=== PATIENT | female | born 1985 | race Caucasian/White ===

== ENCOUNTER → 2018-01-14 14:29 | Outpatient (CLI) | payer OTHER, SELFPAY ==
--- NOTE | 2018-01-14 14:31 | US_ITS ---
US breast RT complete COMPARISON: None HISTORY: Soreness right breast for 2 weeks TECHNIQUE: Targeted ultrasound right breast FINDINGS: There is fairly homogeneous echogenicity in all 4 quadrants scan consistent with primarily fatty type breast parenchyma. There is no suspicious cystic or solid mass identified and there are no findings of architectural distortion. There are 2 small normal-appearing nodes in the axilla. IMPRESSION: Unremarkable ultrasound right breast
== END ==
PROVIDERS: Family Provider Emergency Medicine; PCP Internal Medicine Adolescent Medicine; Visit Provider Nurse Practitioner Obstetrics & Gynecology
DX: N60.11 Diffuse cystic mastopathy of right breast (principal)
CPT/HCPCS: 76641

== ENCOUNTER → 2018-02-06 15:09 | Outpatient (CLI) | payer OTHER, SELFPAY ==
[2018-02-06 16:09] LABS: HCG,Quantitative 0 mIU/mL
== END ==
PROVIDERS: Visit Provider Nurse Practitioner Obstetrics & Gynecology
DX: Z32.00 Encounter for pregnancy test, result unknown (principal)
CPT/HCPCS: 36415; 84702

== ENCOUNTER → 2018-07-30 15:22 | Outpatient (CLI) | payer BC, SELFPAY ==
[2018-07-30 19:04] LABS: HCG,Quantitative 0 mIU/mL
== END ==
PROVIDERS: Visit Provider Nurse Practitioner Obstetrics & Gynecology
DX: Z34.90 Encounter for supervision of normal pregnancy, unspecified, unspecified trimester (principal)
CPT/HCPCS: 36415; 84702

== ENCOUNTER → 2018-10-23 13:05 | Outpatient (CLI) | payer BC, SELFPAY ==
--- NOTE | 2018-10-23 13:09 | MR_ITS ---
MR head/brain wo/w con HISTORY: Headache with nausea and lightheadedness and sensitivity to light ITS.REASON: MIGRAINE WITHOUT AURA AND WITHOUT STATUS MIGRAINOSUS, NOT IN ORDERING PHYSICIAN: Kj Pack MD PATIENT AGE: 32 years Comparison: None TECHNIQUE: Standard multiplanar multiecho sequences are performed without and with gadolinium enhancement . FINDINGS: No midline shift, mass effect, intracranial hemorrhage, or hydrocephalus. No evidence of acute infarction. The cerebellopontine angles, cerebellum, and brainstem are unremarkable. There is normal solis-white matter differentiation with no abnormal white matter signal intensity apparent. The pituitary, optic chiasm, corpus callosum, and craniocervical junction have an unremarkable appearance. No enhancing lesions are evident. No large aneurysms are identified. No mastoid effusion or sinus air-fluid level. A 16 mm mucus retention cyst is present in the floor the right maxillary sinus. IMPRESSION: 1. No acute intracranial findings. Unremarkable MRI of the brain without and with contrast. 2. Right maxillary sinus mucus retention cyst
== END ==
PROVIDERS: PCP Internal Medicine Adolescent Medicine; Visit Provider Internal Medicine Adolescent Medicine
DX: G43.009 Migraine without aura, not intractable, without status migrainosus (principal)
CPT/HCPCS: 70553; A9576

== ENCOUNTER → 2018-10-25 16:57 | Outpatient (CLI) | payer BC, SELFPAY ==
--- NOTE | 2018-10-25 17:03 | XR_ITS ---
XR chest 2V HISTORY: ITS.REASON: RIB PAIN ON RIGHT SIDE, COUGH ORDERING PHYSICIAN: Kj Pack MD PATIENT AGE: 32 years COMPARISON: None FINDINGS: The cardiomediastinal silhouette and pulmonary vascularity are within normal limits. The lungs are clear without infiltrates, suspicious nodules, or pleural effusions. No acute bony abnormalities. IMPRESSION: Negative chest, no acute finding
--- NOTE | 2018-10-25 17:04 | XR_ITS ---
XR ribs RT 2V HISTORY: ITS.REASON: RIB PAIN ON RIGHT SIDE, COUGH ORDERING PHYSICIAN: Kj Pack MD PATIENT AGE: 32 years Comparison: None FINDINGS: A frontal view of the chest shows no acute finding. Multiple views of the Left ribs were obtained. No fracture or dislocation. No lytic or blastic change. IMPRESSION: Negative RIBS. If pain persists, consider follow-up exam in 7-[address] with 3-D reformats.
== END ==
PROVIDERS: PCP Internal Medicine Adolescent Medicine; Visit Provider Internal Medicine Adolescent Medicine
DX: R05 Cough (principal); R07.81 Pleurodynia
CPT/HCPCS: 71046; 71100

== ENCOUNTER → 2019-11-25 20:01 | Outpatient (CLI) | payer BC, SELFPAY ==
[2019-11-25 21:46] LABS: Coronavirus 19 IgG Antibody Negative (Negative); Coronavirus 19 IgM Antibody Negative (Negative)
== END ==
PROVIDERS: PCP Internal Medicine Adolescent Medicine; Visit Provider Internal Medicine Adolescent Medicine
DX: Z03.818 Encounter for observation for suspected exposure to other biological agents ruled out (principal); J02.9 Acute pharyngitis, unspecified
CPT/HCPCS: 36415; 86328

== ENCOUNTER → 2020-05-10 16:04 | Outpatient (CLI) | payer BC, SELFPAY | PROVIDERS: PCP Internal Medicine Adolescent Medicine; Visit Provider Nurse Practitioner Family | DX: Z03.818 Encounter for observation for suspected exposure to other biological agents ruled out (principal); R50.9 Fever, unspecified; J20.9 Acute bronchitis, unspecified | CPT/HCPCS: U0003 ==

== ENCOUNTER → 2020-07-30 14:51 | Outpatient (CLI) | payer BC, SELFPAY | PROVIDERS: PCP Internal Medicine Adolescent Medicine; Visit Provider Internal Medicine Adolescent Medicine | DX: R10.84 Generalized abdominal pain (principal); R30.0 Dysuria | CPT/HCPCS: U0003 ==

== ENCOUNTER 2021-02-16 00:16 | Day surgery (SDC) | payer BC, SELFPAY ==
[2021-02-16] VITALS (19 sets, daily range): BP systolic 90–134; BP diastolic 52–88; PULSE 65–98; RESP 12–20; TEMP 36.1–36.9; O2SAT 93–100; BMI 37.5
--- NOTE | 2021-02-16 00:43 | HMH.EDNVD ---
ED Disposition Clinical Impression: Ruptured ectopic Disposition: Admitted as Observation Condition on Discharge: Serious Instructions: DI for Acute Abdominal Pain Referrals: Kj Pack MD [Primary Care Provider] - - Critical Care Critical Care Time: No Attestation: On 02/16/21, the high probability of a clinically significant, sudden or life threatening deterioration of the following system(s) required my full and direct attention, intervention and personal management. The time I documented below is in addition to time spent performing reported procedures but includes the following listed in this critical care notation. Medical Decision Making - Medical Records Medical records reviewed: Yes: I reviewed the patient's medical records. - Tyler Inquiry Pt receiving controlled substance: No Vital Signs: 02/16/21 00:18 02/16/21 01:00 02/16/21 02:00 Temperature 98.5 F Temperature Source Oral Pulse Rate 70 97 H Pulse Rate [Left Radial] 98 H Respiratory Rate 20 18 Blood Pressure 115/66 134/75 Blood Pressure [Right Arm] 127/65 Blood Pressure Mean 80 Blood Pressure Mean [Right Arm] 85 Blood Pressure Source [Right Arm] Automatic Cuff Blood Pressure Position [Right Arm] Sitting 02 Sat by Pulse Oximetry 99 100 98 Oxygen Delivery Method Room Air Room Air 02/16/21 02:24 02/16/21 02:30 Temperature Temperature Source Pulse Rate 82 77 Pulse Rate [Left Radial] Respiratory Rate 20 19 Blood Pressure 99/59 L 107/65 L Blood Pressure [Right Arm] Blood Pressure Mean Blood Pressure Mean [Right Arm] Blood Pressure Source [Right Arm] Blood Pressure Position [Right Arm] 02 Sat by Pulse Oximetry 100 100 Oxygen Delivery Method Room Air - Lab Data Lab results reviewed: Yes: I reviewed the patient's lab results. Lab Results 02/16/21 00:30: WBC 17.4 H, RBC 4.78, Hgb 13.5, Hct 39.7, MCV 83.0, MCH 28.2, MCHC 34.0, RDW 14.7, Plt Count 281, MPV 9.4, Neut % (Auto) 61.4, Lymph % (Auto) 30.9, [place] % (Auto) 4.4, Eos % (Auto) 2.9, Baso % (Auto) 0.4, Neut # (Auto) 10.7 H, Lymph # (Auto) 5.4 H, [place] # (Auto) 0.8, Eos # (Auto) 0.5 H, Baso # (Auto) 0.1, Total Counted 100, Neutrophils % (Manual) 60, Lymphocytes % (Manual) 33, Monocytes % (Manual) 4, Eosinophils % (Manual) 3, Platelet Estimate Normal, RBC Morphology Normal, ESR 14 02/16/21 00:30: Sodium 138, Potassium 3.9, Chloride 106, Carbon Dioxide 23, Anion Gap 12.9, BUN 8, Creatinine 0.60, Estimated Creat Clear 227, Estimated GFR 114, Est GFR ( Amer) 138, Glucose 109 H, Calcium 9.0, Total Bilirubin 0.3, AST 27, ALT 35, Alkaline Phosphatase 73, C-Reactive Protein 10.1 H, Total Protein 6.8, Albumin 4.2, Globulin 2.6, Albumin/Globulin Ratio 1.6, Amylase 59, Lipase 59, Procalcitonin 0.041 02/16/21 00:30: Serum HCG, Qual Positive 02/16/21 00:55: HCG, Quant 4117 H 02/16/21 02:00: SARS-CoV-2 (PCR) Not detected, Influenza A Untype (PCR) Not detected, Influenza Type B (PCR) Not detected Result diagrams: 02/16/21 00:30 02/16/21 00:30 Orders (Tests/Meds): ED MEDICATIONS Generic Name Dose Route Start Last Admin Trade Name Freq PRN Reason Stop Dose Admin Sodium Chloride 1,000 mls @ 999 mls/hr 02/16/21 00:45 02/16/21 00:42 Sod Chlor 0.9% 1000ml Bag IV 02/16/21 01:45 999 mls/hr .Q1H1M BY[place] Administration Lactated Ringer's 1,000 mls @ 999 mls/hr 02/16/21 02:30 02/16/21 02:48 Lactated Ringer's 1000 Ml Bag IV 02/16/21 03:30 999 mls/hr .Q1H1M [place] Administration Discontinued Medications Generic Name Dose Route Start Last Admin Trade Name Freq PRN Reason Stop Dose Admin Ketorolac Tromethamine 30 mg 02/16/21 00:37 02/16/21 00:42 Ketorolac 30mg/Ml Vial IV 02/16/21 00:38 30 mg ONCE ONE Administration Morphine Sulfate 2 mg 02/16/21 02:22 02/16/21 02:25 Morphine 2mg/Ml Syringe IV 02/16/21 02:23 2 mg ONCE ONE Administration Ondansetron HCl 4 mg 02/16/21 00:37 02/16/21 00:42 Ondansetron 4mg
[2021-02-16 00:52] LABS: Alanine Aminotransferase 35 U/L (12-78); Albumin Level 4.2 g/dl (3.5-5.0); Albumin/Globulin Ratio 1.6 (1.1-1.8); Alkaline Phosphatase 73 U/L (38-126); Amylase 59 U/L (30-110); Anion Gap 12.9 mEq/L (5-15); Aspartate Amino Transferase 27 U/L (14-36); Bilirubin,Total 0.3 mg/dl (0.2-1.3); Blood Urea Nitrogen 8 mg/dl (7-17); Carbon Dioxide 23 mmol/L (22.0-30.0); Chloride 106 mmol/L (98-107); Creatinine Clearance Estimated 227 mL/min (50-200); Estimated Glomerular Filt Rate 114 ml/min (>60); GFR (African American) 138 ML/MIN (>60); Globulin 2.6 g/dL (1.3-3.2); Glucose 109 mg/dl (74-100); Lipase 59 U/L (23-300); Potassium 3.9 mmoL/L (3.5-5.1); Sodium 138 mmol/L (136-145); Total Protein,Serum 6.8 g/dl (6.3-8.2)
[2021-02-16 00:53] LABS: Basophils # 0.1 K/mm3 (0-0.2); Basophils % 0.4 % (0.1-2.0); Eosinophils # 0.5 K/mm3 (0.0-0.4); Eosinophils % 2.9 % (0.1-12.0); Hematocrit 39.7 % (37.0-47.0); Hemoglobin 13.5 g/dL (12.2-16.2); Lymphocytes # 5.4 K/mm3 (0.7-4.5); Lymphocytes % 30.9 % (10-50); Mean Corpuscular Hemoglobin 28.2 pg (27.0-31.2); Mean Platelet Volume 9.4 fl (7.4-10.4); Monocytes # 0.8 K/mm3 (0.1-1.0); Monocytes % 4.4 % (1.7-9.3); Neutrophils # 10.7 K/mm3 (1.8-7.8); Neutrophils % 61.4 % (37.0-80.0); Platelet Count 281 K/mm3 (142-424); Red Blood Count 4.78 M/mm3 (4.20-5.40); Red Cell Distribution Width 14.7 % (11.5-17.5); White Blood Count 17.4 K/mm3 (4.8-10.8)
[2021-02-16 00:56] LABS: HCG Qualitative, Serum Positive (Negative)
[2021-02-16 00:57] LABS: C-Reactive Protein 10.1 mg/L (0-4)
[2021-02-16 01:00] LABS: MANUAL DIFFERENTIAL MANUAL DIFFERENTIAL (MANUAL DIFF)
[2021-02-16 01:11] LABS: Procalcitonin 0.041 ng/mL (0.0-2.0)
--- NOTE | 2021-02-16 01:11 | US_ITS ---
PROCEDURE INFORMATION: Exam: US , Transvaginal Exam date and time: 02/16/2021 1:11 AM Age: 35 years old Clinical indication: complicated by abdominal or pelvic pain; Right lower quadrant; First trimester; Gestational age or lmp: Unsure; ; Patient HX: Onset of acute pelvic pain-- [facility]; Additional info: Abd pain TECHNIQUE: Imaging protocol: Real-time transvaginal obstetrical ultrasound of the maternal pelvis with image documentation. Transvaginal imaging was used for better evaluation of the fetus, adnexa, and/or cervix. COMPARISON: KID US [id number] 06/29/2014 2:04 PM FINDINGS: Gestation: No intrauterine gestational sac is seen. MATERNAL: Uterus: Uterus measures 8.9 x 3.7 x 4.7 cm. There is complex fluid and probable blood products in the uterus measuring 2.6 x 2.0 cm. Right adnexa: There is a heterogeneous right adnexal mass measuring 5.5 x 4.1 by 3.1 cm. Right ovary itself is not well defined. Left adnexa: There is a heterogeneous mass measuring 5.3 x 5.1 x 4.9 cm. Left ovary itself is not well defined. Intraperitoneal space: There is a large amount of heterogeneous is fluid/hemorrhage in the pelvic cul-de-sac. Free fluid is also seen extending into the upper abdomen around the liver and in Morison's pouch. IMPRESSION: 1. No intrauterine gestation visualized. 2. Constellation of findings concerning for a ruptured ectopic including heterogeneous bilateral adnexal masses and large volume abdominopelvic fluid/hemorrhage. 3. Complex fluid and probable blood products in the endometrial cavity.
--- NOTE | 2021-02-16 01:14 | PC.NURSE ---
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
[2021-02-16 01:32] LABS: HCG,Quantitative 4117 mIU/ml (0-5.42)
[2021-02-16 02:04] LABS: Coronavirus 19, PCR Not Detected (NotDetected); Influenza A, PCR Not Detected (NotDetected); Influenza B, PCR Not Detected (NotDetected)
[2021-02-16 02:06] LABS: Erythrocyte Sedimentation Rate 14 mm/hr (0-20)
--- NOTE | 2021-02-16 02:26 | PC.NURSE ---
is currently in sx with a pt. She is aware of current ectopic with Radhames.
[2021-02-16 02:36] LABS: Eosinophils % 3 % (0-3); Lymphocytes % 33 % (10-50); Monocytes % 4 % (2-9); Neutrophils % 60 % (42-76); Platelet Estimate Normal; RBC Morphology Normal; Total Cells Counted 100
--- NOTE | 2021-02-16 02:44 | PC.NURSE ---
Spoke with House. Surgery team is cleaning OR now for pt.
--- NOTE | 2021-02-16 02:53 | PC.NURSE ---
at bedside speaking with pt
--- NOTE | 2021-02-16 03:05 | HMH.HP ---
*Admission Date: 02/16/21 *Chief complaint: abd pain *History of present illness: 35 yo presented to the ED with acute onset abdominal pain that woke her from sleep. She was unaware of ; is s/p vasectomy. Evaluation in ED showed HCG 4100 and pelvic ultrasound concerning for ectopic . No IUP identified, but large volume of free fluid extending up to liver and bilateral 5cm adnexal masses noted. [facility] History I have reviewed the patient's past medical history: Yes Medical History: Reports:: Anxiety, Asthma, Depression, Migraine Denies:: Cancer, Diabetes Mellitus Type 1, Diabetes Mellitus Type 2, Internal Pacemaker, MRSA, Seizures *Have you ever received a pneumonia vaccine?: No *Have you received a flu vaccine this season?: Yes Other Medical History: Reports: Other. Denies: Blood Transfusion Reaction Other Surgeries: Yes: Cholecystectomy, Other (Eye Sx). No: Pacemaker Amputation: No Fractures: No - *Social History Smoking Status: Current every day smoker Tobacco Type: cigarettes # Packs/Day (cigarettes): 1 Alcohol Intake: never Alcohol Intake Frequency:: holidays/special occasions only Substance Use Type: denies use *Occupational Status:: employed Housing: house Household Members: spouse, family *Travel in the last 8 weeks: None - Psychiatric History Pschychiatric History:: Reports:: Anxiety, Depression Family Hx:: Diabetes, Heart Attack, Coronary Artery Disease, Hypertension, Cancer Review of Systems - Review of Systems Review of systems:: pertinent systems reviewed and negative unless documented below - *Gastrointestinal Reports abdominal pain - *Genitourinary Denies abnormal vaginal bleeding - *Neurologic Denies headache(s), Denies seizure-like activity Meds Home Medications Medication Instructions Recorded Confirmed Type No Known Home Medications 12/09/20 02/16/21 History Allergies Allergy/AdvReac Type Severity Reaction Status Date / Time acetaminophen [From Percocet] Allergy Intermediate Itching Verified 12/09/20 08:39 oxycodone [From Percocet] Allergy Intermediate Itching Verified 12/09/20 08:39 propoxyphene Allergy Intermediate Rash,Itchin Verified 12/09/20 08:39 g tramadol Allergy Intermediate Hives Verified 12/09/20 08:39 iopamidol [From [id number]] Allergy Difficulty Verified 12/09/20 08:44 Breathing prednisone AdvReac Gastrointestinal Verified 12/09/20 08:44 Upset MUSCLE RELAXANTS Allergy Unknown Uncoded 12/09/20 08:39 Exam Vital signs and Labs for Last 24 Hours: Temp Pulse Resp BP Pulse Ox 98.5 F 77 19 107/65 L 100 02/16/21 00:18 02/16/21 02:30 02/16/21 02:30 02/16/21 02:30 02/16/21 02:30 Laboratory Results - last 24 hr 02/16/21 00:30: WBC 17.4 H, RBC 4.78, Hgb 13.5, Hct 39.7, MCV 83.0, MCH 28.2, MCHC 34.0, RDW 14.7, Plt Count 281, MPV 9.4, Neut % (Auto) 61.4, Lymph % (Auto) 30.9, [place] % (Auto) 4.4, Eos % (Auto) 2.9, Baso % (Auto) 0.4, Neut # (Auto) 10.7 H, Lymph # (Auto) 5.4 H, [place] # (Auto) 0.8, Eos # (Auto) 0.5 H, Baso # (Auto) 0.1, Total Counted 100, Neutrophils % (Manual) 60, Lymphocytes % (Manual) 33, Monocytes % (Manual) 4, Eosinophils % (Manual) 3, Platelet Estimate Normal, RBC Morphology Normal, ESR 14 02/16/21 00:30: Sodium 138, Potassium 3.9, Chloride 106, Carbon Dioxide 23, Anion Gap 12.9, BUN 8, Creatinine 0.60, Estimated Creat Clear 227, Estimated GFR 114, Est GFR ( Amer) 138, Glucose 109 H, Calcium 9.0, Total Bilirubin 0.3, AST 27, ALT 35, Alkaline Phosphatase 73, C-Reactive Protein 10.1 H, Total Protein 6.8, Albumin 4.2, Globulin 2.6, Albumin/Globulin Ratio 1.6, Amylase 59, Lipase 59, Procalcitonin 0.041 02/16/21 00:30: Serum HCG, Qual Positive 02/16/21 00:55: HCG, Quant 4117 H 02/16/21 02:00: SARS-CoV-2 (PCR) Not detected, Influenza A Untype (PCR) Not detected, Influenza Type B (PCR) Not detected I & O for Last 24 hours: Intake & Output 02/13/21 02/14/21 02/15/21 02/16/21 11:59 11:59 11:59 11:
--- NOTE | 2021-02-16 03:07 | PC.NURSE ---
Pt transported to sx accompanied by this RN and sx RN at this time
--- NOTE | 2021-02-16 03:43 | HMH.ANESCL ---
[facility] Anesthesia Checklist - Patient Identification Patient Identification: Arm Band, Verbal (Name & ) - Structural Data Admitted From: Emergency Dept Planned Operative Procedure/s: diagnostic lap Consent for Planned Operative Procedure(s) Verified: Yes Verified Documents: Surgical Consent - NPO Status Verified Time NPO: 19:30 - Chart Verification Results Verified: CBC, BMP - Additional verifications Patient : Yes Anesthesia Reactions: No Hx Blood Transfusions: No Blood Transfusion Reaction: No Previous Colonoscopy: No - Cardiovascular Assessment Heart Sounds: S1 & S2 Pulse Strength: Baseline Pulse Rhythm: Regular Peripheral Edema: No - Airway Assessment C-Spine Mobility Assessed: Yes TMJ Mobility Assessed: Yes Dentition: Good Dentition - Neurological Assessment Level of Consciousness: Awake, Alert, Appropriate Hx Seizures: No Numbness or tingling in extremities: No - Psychosocial Assessment Concerns Regarding Surgery: none - Anesthesia Plan Anesthesia Risk discussed: Yes Anesthesia Plan: Verified ASA Class: II Anesthesia Type: General [facility] History I have reviewed the patient's past medical history: Yes Medical History: Reports:: Anxiety, Asthma, Depression, Migraine Denies:: Cancer, Diabetes Mellitus Type 1, Diabetes Mellitus Type 2, Internal Pacemaker, MRSA, Seizures *Have you ever received a pneumonia vaccine?: No *Have you received a flu vaccine this season?: Yes Other Medical History: Reports: Other. Denies: Blood Transfusion Reaction Anesthesia experience/problems:: none Other Surgeries: Yes: Cholecystectomy, Other (Eye Sx). No: Pacemaker Amputation: No Fractures: No - *Social History Smoking Status: Current every day smoker Tobacco Type: cigarettes # Packs/Day (cigarettes): 1 Alcohol Intake: never Alcohol Intake Frequency:: holidays/special occasions only Substance Use Type: denies use *Occupational Status:: employed Housing: house Household Members: spouse, family *Travel in the last 8 weeks: None - Psychiatric History Pschychiatric History:: Reports:: Anxiety, Depression Family Hx:: Diabetes, Heart Attack, Coronary Artery Disease, Hypertension, Cancer
--- NOTE | 2021-02-16 05:15 | P.OP_ITS ---
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 She was prepped/draped in lithotomy position. A uterine manipulator was placed without difficulty. Gloves were changed and attention was turned to the abdomen. A 5mm skin incision was made in the umbilical fold and the verees needle was inserted through the peritoneum and into the abdominal cavity in standard fashion. The abdomen was insufflated with CO2 gas. A 5mm non-bladed trocar was inserted directly into the abdominal cavity and appropriate placement was confirmed with the laparoscope. No intra-abdominal injuries occurred during entry into the abdominal cavity, as confirmed visually with the laparoscope. The patient was placed in trendelenburg and a 5mm skin incision was made 2cm above the pubic symphysis. A 5mm non-bladed trocar was inserted under direct visualization, without complication. The uterus was elevated out of the pelvis in order to better visualize the anatomy. A survey of the pelvis and abdomen revealed the findings noted above. A 11mm skin incision was made in the left lower quadrant and a non-bladed trocar was inserted under direct visualization, without complication. A 5mm incision was made in the right lower quadrant and a trocar inserted under visualization without complication. The abdomen and pelvis were filled with clotted blood, wh ich was difficulty to suction. The uterus was elevated and the ectopic identified on the right side. No left adnexal mass was seen, in contrast to the ultrasound report. The ectopic and dilated fallopian tube were excised with the harmonic scalpel and removed through an endobag. The abdomen and pelvis were irrigated and clot suctioned out for approximately 40 minutes. The suction canister contained 1000cc of blood when irrigation fluid was subtracted. The right fallopian tube pedicle was hemostatic. The abdomen was then evacuated of gas and all trocars removed. The skin incisions were closed with 4-0 monocryl and dermabond. All sponge/lap/needle/instrument counts correct for both abdominal and vaginal procedures. Total EBL: 1000cc. The patient was taken out of lithotomy position, extubated and taken to the PACU in stable condition. Condition: stable Disposition: PACU Specimens:: right fallopian tube products of conception Complications:: none
--- NOTE | 2021-02-16 05:32 | HMH.ANESI ---
[facility] Anesthesia Record Part I Intake, IV Amount: 2,300 Estimated blood loss (mL): 1,000 Urine output (mL): 100 Blood Products used (#): none Blood Pressure: 122/88 SaO2: 100 Pulse Rate: 74 Respiratory Rate: 20 Temperature: 97.8 F Patient is:: Awake, Stable Stable to PACU at:: 05:29
[2021-02-16 07:45] LABS: Microscopic,Cath URINE MICROSCOPIC (MICROSCOPIC)
[2021-02-16 08:22] LABS: Appearance,Urine/Cath CLEAR (Clear); Bilirubin,Cath Negative (Negative); Blood, Urine/Cath Negative (Negative); Color,Urine/Cath YELLOW (Yellow); Glucose,Urine/Cath (UA) Negative (Negative); Ketones,Urine/Cath TRACE (Negative); Leukocyte Esterase,Cath Negative (Negative); Nitrate,Cath Negative (Negative); Protein,Urine/Cath 2+ (Negative); Specific Gravity, Urine/Cath 1.015 (1.005-1.030)
[2021-02-16 08:33] LABS: RBC,Urine/Cath Occasional # /hpf (0-3); WBC,Urine/Cath Occasional #/hpf (0-3)
--- NOTE | 2021-02-16 10:17 | P.PN_ITS ---
[facility] Anesthesia Record Part II Discharge Time: 05:39 Destination: Surgical Day Care (OP Surgery) PACU nurse assessment reviewed?: Yes Patient Condition:: Good Anesthesia Complications:: None Swallowing reflex intact?: Yes Cyanosis?: No Blood Pressure: 101/64 Pulse Rate: 74 Temperature: 97.0 F Mental Status: Alert & Oriented Pain level:: 2 Nausea and/or vomitting:: None Intake, IV Amount: 100
== END 2021-02-16 06:30 | disposition home or self-care (01) ==
LOC: ER 02:58 → SDC 03:06
PROVIDERS: Emergency Provider Emergency Medicine; PCP Internal Medicine Adolescent Medicine; Visit Provider Obstetrics & Gynecology
PROC: (CPT 49320; principal; 2021-02-16 03:00)
DX: O00.101 Right tubal pregnancy without intrauterine pregnancy (principal); J45.909 Unspecified asthma, uncomplicated; F41.9 Anxiety disorder, unspecified; F32.9 Major depressive disorder, single episode, unspecified; G43.909 Migraine, unspecified, not intractable, without status migrainosus; Z90.49 Acquired absence of other specified parts of digestive tract; Z72.0 Tobacco use; Z88.6 Allergy status to analgesic agent; Z88.8 Allergy status to other drugs, medicaments and biological substances; Z83.3 Family history of diabetes mellitus; Z82.3 Family history of stroke; Z82.49 Family history of ischemic heart disease and other diseases of the circulatory system; Z80.9 Family history of malignant neoplasm, unspecified
CPT/HCPCS: 59151; 76817; 80053; 81001; 82150; 83690; 84145; 84702; 84703; 85007; 85025; 85651; 86140; 86850; 96365; 96366; 96374; 96375; 99284; J2405; U0003

== ENCOUNTER → 2021-02-22 10:35 | Outpatient (CLI) | payer BC, SELFPAY ==
[2021-02-22 10:45] LABS: Hematocrit 29.5 % (37.0-47.0); Hemoglobin 9.6 g/dL (12.2-16.2)
== END ==
PROVIDERS: Visit Provider Obstetrics & Gynecology
DX: N93.9 Abnormal uterine and vaginal bleeding, unspecified (principal)
CPT/HCPCS: 36415; 85014; 85018

== ENCOUNTER → 2021-10-27 14:32 | Outpatient (CLI) | payer BC, SELFPAY ==
[2021-10-27 15:12] LABS: HCG,Quantitative 2070 mIU/ml (0-5.42)
== END ==
PROVIDERS: Visit Provider Obstetrics & Gynecology
DX: Z32.01 Encounter for pregnancy test, result positive (principal)
CPT/HCPCS: 36415; 84702

== ENCOUNTER → 2021-10-29 08:53 | Outpatient (CLI) | payer BC, SELFPAY ==
[2021-10-29 09:59] LABS: HCG,Quantitative 3643 mIU/ml (0-5.42)
== END ==
PROVIDERS: Visit Provider Obstetrics & Gynecology
DX: Z34.90 Encounter for supervision of normal pregnancy, unspecified, unspecified trimester (principal)
CPT/HCPCS: 36415; 84702

== ENCOUNTER → 2021-11-07 14:05 | Outpatient (CLI) | payer BC, SELFPAY ==
--- NOTE | 2021-11-07 14:06 | US_ITS ---
FINAL REPORT CLINICAL HISTORY: Dates FINDINGS: Sonographic images of the pelvis were obtained. A single, living intrauterine is noted. A yolk sac is present and measures 0.39 cm. [place] to rump length measures 0.46 cm which corresponds to 6 weeks 2 days gestation. Heartbeat is identified and measures 117 beats per minute. The right ovary is within normal limits and vascular flow is noted. The left ovary is not visualized. IMPRESSION: Single, living, intrauterine gestation with 6 weeks 2 days ultrasound age. Reviewed, Interpreted and Dictated by Juvenal Orellana III, MD Transcribed by Adina Mcfarland Authenticated by Juvenal Orellana III, MD on 11/07/2021 04:37:15 PM [facility]
== END ==
LOC: RAD 14:06
PROVIDERS: PCP Internal Medicine Adolescent Medicine; Visit Provider Obstetrics & Gynecology
DX: Z34.90 Encounter for supervision of normal pregnancy, unspecified, unspecified trimester (principal)
CPT/HCPCS: 76801

== ENCOUNTER → 2021-11-22 10:32 | Outpatient (CLI) | payer BC, SELFPAY ==
[2021-11-22 11:21] LABS: Basophils # 0.1 K/mm3 (0-0.2); Basophils % 1.1 % (0.1-2.0); Eosinophils # 0.2 K/mm3 (0.0-0.4); Eosinophils % 1.9 % (0.1-12.0); Hematocrit 38.3 % (37.0-47.0); Lymphocytes % 32.2 % (10-50); Mean Corpuscular HGB Conc 33.9 g/dL (31.8-35.4); Mean Corpuscular Hemoglobin 27.5 pg (27.0-31.2); Mean Platelet Volume 9.5 fl (7.4-10.4); Monocytes # 0.5 K/mm3 (0.1-1.0); Monocytes % 4.9 % (1.7-9.3); Neutrophils # 5.5 K/mm3 (1.8-7.8); Neutrophils % 59.8 % (37.0-80.0); Platelet Count 248 K/mm3 (142-424); Red Blood Count 4.73 M/mm3 (4.20-5.40); Red Cell Distribution Width 17.2 % (11.5-17.5); White Blood Count 9.2 K/mm3 (4.8-10.8)
[2021-11-23 06:27] LABS: Rubella Antibodies, IgG 2.07 index (Immune >0.99)
[2021-11-23 09:29] LABS: HIV Screen 4th Generation wRfx Non Reactive (Non Reactive); Progesterone 12.3 ng/mL (.)
[2021-11-23 11:19] LABS: Rapid Plasma Reagin Ab Titer Non Reactive (NonRea<1:1)
[2021-11-24 08:22] LABS: Hepatitis B Surface Antigen Negative (Negative); Hepatitis C Antibody <0.1 s/co ratio (0.0-0.9)
== END ==
PROVIDERS: Visit Provider Obstetrics & Gynecology
DX: Z34.90 Encounter for supervision of normal pregnancy, unspecified, unspecified trimester (principal)
CPT/HCPCS: 36415; 84144; 85025; 86592; 86703; 86762; 86850; 87340; 87380; G0432

== ENCOUNTER 2021-12-14 21:50 | Emergency (ER) | payer BC, SELFPAY ==
[2021-12-14 21:51] VITALS: BP 139/80; PULSE 77; RESP 18; TEMP 36.7; O2SAT 99; BMI 36.6
[2021-12-14 22:51] VITALS: BP 139/80; PULSE 81; O2SAT 98
[2021-12-14 23:00] VITALS: BP 119/65; PULSE 71; RESP 16
[2021-12-14 23:14] LABS: Influenza A, PCR Not Detected (NotDetected); Influenza B, PCR Not Detected (NotDetected)
[2021-12-14 23:16] LABS: Microscopic, Urine URINE MICROSCOPIC (MICROSCOPIC)
[2021-12-14 23:19] LABS: Basophils # 0.2 K/mm3 (0-0.2); Basophils % 1.1 % (0.1-2.0); Eosinophils # 0.4 K/mm3 (0.0-0.4); Hematocrit 36.9 % (37.0-47.0); Hemoglobin 12.6 g/dL (12.2-16.2); Lymphocytes # 3.8 K/mm3 (0.7-4.5); Lymphocytes % 25.9 % (10-50); Mean Corpuscular HGB Conc 34.1 g/dL (31.8-35.4); Mean Corpuscular Hemoglobin 28.3 pg (27.0-31.2); Mean Corpuscular Volume 82.9 fl (81-99); Mean Platelet Volume 10.2 fl (7.4-10.4); Monocytes # 0.6 K/mm3 (0.1-1.0); Monocytes % 3.9 % (1.7-9.3); Neutrophils # 9.6 K/mm3 (1.8-7.8); Neutrophils % 66.2 % (37.0-80.0); Platelet Count 248 K/mm3 (142-424); Red Blood Count 4.45 M/mm3 (4.20-5.40); White Blood Count 14.5 K/mm3 (4.8-10.8)
[2021-12-14 23:22] LABS: Anion Gap 9.6 mEq/L (5-15); Blood Urea Nitrogen 5 mg/dl (7-17); Calcium 9.1 mg/dl (8.4-10.2); Carbon Dioxide 26 mmol/L (22.0-30.0); Chloride 104 mmol/L (98-107); Creatinine Clearance Estimated 263 mL/min (50-200); Estimated Glomerular Filt Rate 140 ml/min (>60); GFR (African American) 170 ML/MIN (>60); Glucose 109 mg/dl (74-100); Potassium 3.6 mmoL/L (3.5-5.1); Sodium 136 mmol/L (136-145)
[2021-12-14 23:22] LABS: Appearance,Urine CLEAR (Clear); Bilirubin,Urine Negative (Negative); Blood, Urine Negative (Negative); Color,Urine YELLOW (Yellow); Glucose,Urine (UA) Negative (Negative); Ketones,Urine Negative (Negative); Leukocyte Esterase,Urine Negative (Negative); Nitrate,Urine Negative (Negative); Protein,Urine Negative (Negative); Specific Gravity, Urine 1.015 (1.005-1.030); Urobilinogen,Urine 0.2 EU/dl (0.2)
[2021-12-14 23:25] LABS: Magnesium 1.8 mg/dl (1.6-2.3)
[2021-12-14 23:31] LABS: Bacteria,Urine Trace /lpf
[2021-12-14 23:33] VITALS: BP 125/65; PULSE 80; RESP 18; O2SAT 100
--- NOTE | 2021-12-14 23:52 | PC.NURSE ---
Pt ambulatory to bathroom with minimal assistance.
[2021-12-15 00:08] LABS: Coronavirus 19, PCR Detected (NotDetected)
--- NOTE | 2021-12-15 01:11 | HMH.EDDIZZ ---
ED Disposition Clinical Impression: COVID-19 Qualifiers: Weeks of gestation: 12 weeks Qualified Code(s): Z3A.12 - 12 weeks gestation of Disposition: Home, Self-Care Condition on Discharge: Good Instructions: Dizziness, Nonvertigo Additional Instructions: fluids and call ob this am Referrals: Kj Pack MD [Primary Care Provider] - - Critical Care Critical Care Time: No Attestation: On 12/14/21, the high probability of a clinically significant, sudden or life threatening deterioration of the following system(s) required my full and direct attention, intervention and personal management. The time I documented below is in addition to time spent performing reported procedures but includes the following listed in this critical care notation. Medical Decision Making - Medical Records Medical records reviewed: Yes: I reviewed the patient's medical records. - Tyler Inquiry Pt receiving controlled substance: No Vital Signs: 12/14/21 21:51 12/14/21 22:51 12/14/21 23:00 Temperature 98.1 F Temperature Source Oral Pulse Rate 81 71 Pulse Rate [Apical] 77 Respiratory Rate 18 16 Blood Pressure 139/80 119/65 Blood Pressure [Right Arm] 139/80 Blood Pressure Mean 94 83 Blood Pressure Mean [Right Arm] 99 Blood Pressure Source [Right Arm] Automatic Cuff Blood Pressure Position [Right Arm] Sitting 02 Sat by Pulse Oximetry 99 98 Oxygen Delivery Method Room Air 12/14/21 23:33 Temperature Temperature Source Pulse Rate 80 Pulse Rate [Apical] Respiratory Rate 18 Blood Pressure 125/65 Blood Pressure [Right Arm] Blood Pressure Mean 79 Blood Pressure Mean [Right Arm] Blood Pressure Source [Right Arm] Blood Pressure Position [Right Arm] 02 Sat by Pulse Oximetry 100 Oxygen Delivery Method - Lab Data Lab results reviewed: Yes: I reviewed the patient's lab results. Lab Results 12/14/21 22:50: WBC 14.5 H, RBC 4.45, Hgb 12.6, Hct 36.9 L, MCV 82.9, MCH 28.3, MCHC 34.1, RDW 17.0, Plt Count 248, MPV 10.2, Neut % (Auto) 66.2, Lymph % (Auto) 25.9, [place] % (Auto) 3.9, Eos % (Auto) 3.0, Baso % (Auto) 1.1, Neut # (Auto) 9.6 H, Lymph # (Auto) 3.8, [place] # (Auto) 0.6, Eos # (Auto) 0.4, Baso # (Auto) 0.2 12/14/21 22:50: Sodium 136, Potassium 3.6, Chloride 104, Carbon Dioxide 26, Anion Gap 9.6, BUN 5 L, Creatinine 0.50 L, Estimated Creat Clear 263, Estimated GFR 140, Est GFR ( Amer) 170, Glucose 109 H, Calcium 9.1 12/14/21 22:50: Magnesium 1.8 12/14/21 22:51: Urine Color Yellow, Urine Appearance Clear, Urine pH 6.0, Ur Specific [place] 1.015, Urine Protein Negative, Urine Glucose (UA) Negative, Urine Ketones Negative, Urine Blood Negative, Urine Nitrate Negative, Urine Bilirubin Negative, Urine Urobilinogen 0.2, Ur Leukocyte Esterase Negative, Urine RBC None, Urine WBC 3-5, Ur Squamous Epith Cells 3-5, Urine Bacteria Trace 12/14/21 22:57: SARS-CoV-2 (PCR) Detected A, Influenza A Untype (PCR) Not detected, Influenza Type B (PCR) Not detected Result diagrams: 12/14/21 22:50 12/14/21 22:50 Orders (Tests/Meds): ED MEDICATIONS Generic Name Dose Route Start Last Admin Trade Name Freq PRN Reason Stop Dose Admin Lactated Ringer's 1,000 mls @ 999 mls/hr 12/14/21 23:15 12/14/21 23:16 Lactated Ringer's 1000 Ml Bag IV 12/15/21 00:15 999 mls/hr .Q1H1M [place] Administration Discontinued Medications Generic Name Dose Route Start Last Admin Trade Name Freq PRN Reason Stop Dose Admin Sodium Chloride 1,000 mls @ 999 mls/hr 12/14/21 23:15 Sod Chlor 0.9% 1000ml Bag IV 12/15/21 00:15 .Q1H1M [facility] Medical Decision Narrative: has covid-19 and is 12 weeks Dizzy HPI - General Chief Complaint: Dizziness Stated Complaint: 12 wk Preg Dizzy,weakness Time Seen by Provider: 12/15/21 01:11 Mode of Arrival: Ambulatory Source of Information: Patient, Medical Record Limitations: No Limitations Description of Symptoms (Recalled from ER Triage Do
[2021-12-15 01:18] VITALS: BP 126/78; PULSE 80; RESP 16; TEMP 36.7; O2SAT 100
== END 2021-12-15 01:30 | disposition home or self-care (01) ==
PROVIDERS: Emergency Provider Emergency Medicine; PCP Internal Medicine Adolescent Medicine
DX: O98.511 Other viral diseases complicating pregnancy, first trimester (principal); U07.1 COVID-19; R51.9 Headache, unspecified; Z3A.12 12 weeks gestation of pregnancy; F17.210 Nicotine dependence, cigarettes, uncomplicated
CPT/HCPCS: 80048; 81001; 83735; 85025; 96360; 99283; C9803; U0003; U0005

== ENCOUNTER → 2021-12-20 14:19 | Outpatient (CLI) | payer BC, SELFPAY | PROVIDERS: PCP Internal Medicine Adolescent Medicine; Visit Provider Obstetrics & Gynecology | DX: Z34.80 Encounter for supervision of other normal pregnancy, unspecified trimester (principal) ==

== ENCOUNTER → 2022-02-03 14:25 | Outpatient (CLI) | payer BC, SELFPAY ==
--- NOTE | 2022-02-03 14:25 | US_ITS ---
FINAL REPORT CLINICAL HISTORY: 20 week anatomy scan; advanced maternal age FINDINGS: There is a single live intrauterine gestation. Presentation is breech. The cervix is closed and measures 4.2 cm. Placenta is anterior grade 1. movement is noted. heart rate is 142 beats per minute Three-vessel cord with satisfactory umbilical cord insertion. Four-chamber heart is noted. brain and ventricles are unremarkable. Chest and diaphragm are unremarkable. ABDOMEN: Both kidneys are unremarkable. Stomach is unremarkable. SPINE: No anomalies identified. Both arms and legs noted. AMNIOTIC FLUID: Appropriate amount. MEASUREMENTS: ULTRASOUND AGE: 19 weeks 1 day. GESTATION AGE: 19 weeks 1 day. ESTIMATED WEIGHT: 272 g GROWTH PERCENTILE: 41 % BPD: 4.39 cm corresponding to 19 weeks 2 days. OFD: 5.47 cm corresponding to 19 weeks 2 days. HC: 15.58 cm corresponding to 18 weeks 4 days. AC: 13.67 cm corresponding to 19 weeks 1 day. FL: 2.96 cm corresponding to 19 weeks 1 day. CEREBELLUM: 1.83 cm corresponding to 19 weeks 0 days. HC/AC: 1.14 CI: 80% FL/BPD: 87% FL/AC: 22% IMPRESSION: Single living IUP with an ultrasound age of 19 weeks 1 day. No anomalies identified. Reviewed, Interpreted and Dictated by Juvenal Orellana III, MD Transcribed by Osiris Erwin Authenticated and [facility]
== END ==
LOC: RAD 14:25
PROVIDERS: PCP Internal Medicine Adolescent Medicine; Visit Provider Obstetrics & Gynecology
DX: Z34.90 Encounter for supervision of normal pregnancy, unspecified, unspecified trimester (principal); Z3A.20 20 weeks gestation of pregnancy
CPT/HCPCS: 76811

== ENCOUNTER 2022-03-14 14:00 | Outpatient (CLI) | payer BC, SELFPAY ==
[2022-03-14 14:48] VITALS: BP 119/66; PULSE 74; RESP 16; TEMP 36.9; O2SAT 98; BMI 36.9
== END 2022-03-14 15:21 | disposition home or self-care (01) ==
LOC: OBOUT 14:04 → OB 14:04
PROVIDERS: PCP Internal Medicine Adolescent Medicine; Visit Provider Obstetrics & Gynecology
DX: Z34.90 Encounter for supervision of normal pregnancy, unspecified, unspecified trimester (principal); Z3A.24 24 weeks gestation of pregnancy

== ENCOUNTER → 2022-04-01 08:53 | Outpatient (CLI) | payer BC, SELFPAY ==
[2022-04-01 09:34] LABS: Basophils # 0.1 K/mm3 (0-0.2); Basophils % 0.5 % (0.1-2.0); Eosinophils # 0.3 K/mm3 (0.0-0.4); Eosinophils % 2.5 % (0.1-12.0); Hematocrit 36.1 % (37.0-47.0); Hemoglobin 11.8 g/dL (12.2-16.2); Lymphocytes # 2.9 K/mm3 (0.7-4.5); Lymphocytes % 21.4 % (10-50); Mean Corpuscular HGB Conc 32.8 g/dL (31.8-35.4); Mean Corpuscular Hemoglobin 29.3 pg (27.0-31.2); Mean Corpuscular Volume 89.4 fl (81-99); Monocytes # 0.5 K/mm3 (0.1-1.0); Monocytes % 3.8 % (1.7-9.3); Neutrophils # 9.7 K/mm3 (1.8-7.8); Neutrophils % 71.9 % (37.0-80.0); Platelet Count 263 K/mm3 (142-424); Red Blood Count 4.04 M/mm3 (4.20-5.40); White Blood Count 13.5 K/mm3 (4.8-10.8)
[2022-04-01 09:56] LABS: Glucose,Fasting 88 mg/dl (74-100)
[2022-04-01 11:01] LABS: Glucose 1 Hour 128 mg/dL (74-100)
== END ==
PROVIDERS: Visit Provider Obstetrics & Gynecology
DX: Z34.90 Encounter for supervision of normal pregnancy, unspecified, unspecified trimester (principal)
CPT/HCPCS: 36415; 82951; 85025

== ENCOUNTER → 2022-05-11 16:25 | Outpatient (CLI) | payer BC, SELFPAY ==
--- NOTE | 2022-05-11 | XR_ITS ---
PROCEDURE INFORMATION: Exam: XR Left Ankle Exam date and time: 05/11/2022 4:32 PM Age: 36 years old Clinical indication: Pain; Ankle; Left; Additional info: Lateral ankle pain. TECHNIQUE: Imaging protocol: Radiologic exam of the Left ankle. Views: 3 or more views. COMPARISON: No relevant prior studies available. FINDINGS: Bones/joints: There is a mild joint effusion. No visible fracture or dislocation. Circumferential soft tissue swelling about the lateral malleolar region. Soft tissues: See Bones/joints finding. IMPRESSION: 1. No visible fracture or dislocation. 2. Circumferential soft tissue swelling about the lateral malleolar region.
== END ==
PROVIDERS: PCP Nurse Practitioner Family; Visit Provider Nurse Practitioner Family
DX: M25.572 Pain in left ankle and joints of left foot (principal); G89.11 Acute pain due to trauma
CPT/HCPCS: 73610

== ENCOUNTER 2022-05-12 11:20 | Outpatient (RCR) | payer BC, SELFPAY | END 2022-05-12 12:30 | disposition home or self-care (01) | LOC: PT 11:20 | PROVIDERS: Visit Provider Nurse Practitioner Family | DX: M25.572 Pain in left ankle and joints of left foot (principal) | CPT/HCPCS: 97760 ==

== ENCOUNTER → 2022-05-12 14:04 | Outpatient (CLI) | payer BC, SELFPAY ==
--- NOTE | 2022-05-12 14:04 | US_ITS ---
FINAL REPORT CLINICAL HISTORY: lga FINDINGS: There is a single live intrauterine gestation. The cervix measures 3.6 cm. Presentation is cephalic. Placenta is anterior. Cardiac activity is confirmed at 124 bpm. The fetus is active. Three-vessel cord with satisfactory umbilical cord insertion. Four-chamber heart is noted. brain and ventricles are unremarkable. Chest and diaphragm are unremarkable. ABDOMEN: Both kidneys are unremarkable. Stomach is unremarkable. Both arms and legs noted. AMNIOTIC FLUID: Appropriate amount. MEASUREMENTS: ULTRASOUND AGE: 33 weeks 1 days. GESTATION AGE: 33 weeks 1 days. ESTIMATED WEIGHT: 2136 g GROWTH PERCENTILE: 42% BPD: 8.2 cm consistent with 33 weeks 1 days. OFD: 10.5 cm consistent with 33 weeks 1 days. HC: 29.7 cm consistent with 32 weeks 6 days. AC: 28.9 cm consistent with 33 weeks 0 days. FL: 6.6 cm consistent with 33 weeks 6 days. HC/AC: 1.03 CI: 78% FL/BPD: 80% FL/AC: 23% IMPRESSION: Single living IUP with an ultrasound age of 33 weeks 1 days. Reviewed, Interpreted and Dictated by Leandro Mendenhall MD Transcribed by Navid Hatch Authenticated and [facility]
== END ==
LOC: RAD 14:04
PROVIDERS: PCP Obstetrics & Gynecology; Visit Provider Obstetrics & Gynecology
DX: O36.60X0 Maternal care for excessive fetal growth, unspecified trimester, not applicable or unspecified (principal)
CPT/HCPCS: 76816

== ENCOUNTER 2022-05-29 15:55 | Outpatient (CLI) | payer BC, SELFPAY ==
[2022-05-29 16:00] VITALS: BP 117/94; PULSE 78; RESP 20; TEMP 36.6
[2022-05-29 16:12] VITALS: BMI 37.0
[2022-05-29 16:40] LABS: Coronavirus 19, PCR Not Detected (NotDetected); Influenza A, PCR Not Detected (NotDetected); Influenza B, PCR Not Detected (NotDetected); Microscopic, Urine URINE MICROSCOPIC (MICROSCOPIC)
[2022-05-29 16:46] LABS: Basophils # 0.1 K/mm3 (0-0.2); Basophils % 0.5 % (0.1-2.0); Eosinophils # 0.2 K/mm3 (0.0-0.4); Hematocrit 34.8 % (37.0-47.0); Hemoglobin 11.5 g/dL (12.2-16.2); Lymphocytes # 3.5 K/mm3 (0.7-4.5); Lymphocytes % 22.7 % (10-50); Mean Corpuscular HGB Conc 33.2 g/dL (31.8-35.4); Mean Corpuscular Hemoglobin 28.3 pg (27.0-31.2); Mean Corpuscular Volume 85.4 fl (81-99); Mean Platelet Volume 10.9 fl (7.4-10.4); Monocytes # 0.7 K/mm3 (0.1-1.0); Monocytes % 4.5 % (1.7-9.3); Neutrophils # 10.8 K/mm3 (1.8-7.8); Neutrophils % 71.2 % (37.0-80.0); Platelet Count 295 K/mm3 (142-424); Red Blood Count 4.08 M/mm3 (4.20-5.40); Red Cell Distribution Width 13.6 % (11.5-17.5); White Blood Count 15.2 K/mm3 (4.8-10.8)
[2022-05-29 16:50] LABS: MANUAL DIFFERENTIAL MANUAL DIFFERENTIAL (MANUAL DIFF)
[2022-05-29 16:51] LABS: Alanine Aminotransferase 40 U/L (12-78); Aspartate Amino Transferase 38 U/L (14-36); Blood Urea Nitrogen 4 mg/dl (7-17); Calcium 9.3 mg/dl (8.4-10.2); Carbon Dioxide 23 mmol/L (22.0-30.0); Chloride 98 mmol/L (98-107); Creatinine Clearance Estimated 270 mL/min (50-200); Estimated Glomerular Filt Rate 140 ml/min (>60); GFR (African American) 170 ML/MIN (>60); Glucose 100 mg/dl (74-100); Sodium 135 mmol/L (136-145)
[2022-05-29 16:54] LABS: Appearance,Urine CLEAR (Clear); Bilirubin,Urine Negative (Negative); Blood, Urine Negative (Negative); Color,Urine YELLOW (Yellow); Glucose,Urine (UA) Negative (Negative); Ketones,Urine Negative (Negative); Leukocyte Esterase,Urine Negative (Negative); Nitrate,Urine Negative (Negative); PH,Urine 6.5 (5.0-8.5); Protein,Urine Negative (Negative); Urobilinogen,Urine 0.2 EU/dl (0.2)
[2022-05-29 17:07] LABS: Activated Partial Thrombo Time 20.9 seconds (22.8-30.6); Fibrinogen 664 mg/dL (229.9-363.5); INR 0.85 (0.9-1.1); Prothrombin Time 9.3 seconds (10.1-12.5)
[2022-05-29 17:21] LABS: Amphetamine/Metha Screen,Urine Negative ng/ml (<1000); Barbiturates Screen,Urine Negative ng/ml (<200)
[2022-05-29 17:22] LABS: Benzodiazepines Screen,Urine Negative ng/ml (<200); Cannabinoid Screen,Urine Negative ng/ml (<50)
[2022-05-29 17:23] LABS: Cocaine Screen,Urine Negative ng/ml (<300)
[2022-05-29 17:24] LABS: Methadone Screen,Urine Negative ng/ml (<300); Opiate Screen,Urine Negative ng/ml (<300)
[2022-05-29 17:25] LABS: Phencyclidine Screen,Urine Negative ng/ml (<25)
[2022-05-29 17:30] LABS: D-Dimer 0.83 ug/mL (0.0-0.5)
[2022-05-29 17:48] LABS: Eosinophils % 2 % (0-3); Lymphocytes % 26 % (10-50); Monocytes % 3 % (2-9); Neutrophils % 69 % (42-76); Total Cells Counted 100
[2022-05-29 17:49] LABS: Platelet Estimate Normal; Tear Drop Cells 1+
[2022-05-29 17:53] VITALS: BP 121/73; PULSE 89; RESP 20
[2022-05-29 18:05] LABS: Bacteria,Urine Trace /lpf; WBC,Urine Occasional #/hpf (0-3)
[2022-05-29 18:22] VITALS: BP 114/74; PULSE 78; RESP 20
[2022-05-29 18:56] LABS: Strep Scrn Group A (Rapid) Negative (Negative)
[2022-05-29 19:07] VITALS: BP 88/65; PULSE 78
[2022-05-29 19:30] VITALS: BP 124/75; PULSE 71
== END 2022-05-29 19:45 | disposition home or self-care (01) ==
LOC: OBOUT 15:56 → OB 16:02
PROVIDERS: PCP Internal Medicine Adolescent Medicine; Referring Provider Obstetrics & Gynecology; Visit Provider Obstetrics & Gynecology
DX: O26.899 Other specified pregnancy related conditions, unspecified trimester (principal); Z3A.35 35 weeks gestation of pregnancy
CPT/HCPCS: 59025; 80048; 80305; 81001; 84450; 84460; 84550; 85007; 85025; 85378; 85384; 85610; 85730; 87430; 96360; C9803; J2405; U0003; U0005

== ENCOUNTER 2022-05-31 09:40 | Outpatient (CLI) | payer BC, SELFPAY ==
[2022-05-31 09:48] VITALS: BMI 37.5
[2022-05-31 10:06] LABS: Microscopic, Urine URINE MICROSCOPIC (MICROSCOPIC)
[2022-05-31 10:08] LABS: Appearance,Urine CLEAR (Clear); Bilirubin,Urine Negative (Negative); Blood, Urine Negative (Negative); Color,Urine YELLOW (Yellow); Glucose,Urine (UA) Negative (Negative); Ketones,Urine Negative (Negative); Leukocyte Esterase,Urine TRACE (Negative); Nitrate,Urine Negative (Negative); Protein,Urine TRACE (Negative); Urobilinogen,Urine 0.2 EU/dl (0.2)
[2022-05-31 10:19] LABS: Amphetamine/Metha Screen,Urine Negative ng/ml (<1000); Barbiturates Screen,Urine Negative ng/ml (<200)
[2022-05-31 10:20] LABS: Benzodiazepines Screen,Urine Negative ng/ml (<200)
[2022-05-31 10:21] VITALS: BP 112/71; PULSE 89; RESP 17; TEMP 36.4; O2SAT 98; BMI 37.5
[2022-05-31 10:21] LABS: Cannabinoid Screen,Urine Negative ng/ml (<50); Cocaine Screen,Urine Negative ng/ml (<300)
[2022-05-31 10:22] LABS: Methadone Screen,Urine Negative ng/ml (<300); Opiate Screen,Urine Negative ng/ml (<300)
[2022-05-31 10:23] LABS: Phencyclidine Screen,Urine Negative ng/ml (<25)
[2022-05-31 10:41] LABS: Bacteria,Urine 1+ /lpf; WBC,Urine Occasional #/hpf (0-3)
== END 2022-05-31 10:47 | disposition home or self-care (01) ==
LOC: OBOUT 09:42 → OB 09:43
PROVIDERS: Visit Provider Obstetrics & Gynecology
DX: O26.893 Other specified pregnancy related conditions, third trimester (principal); Z3A.35 35 weeks gestation of pregnancy; R12 Heartburn; R11.2 Nausea with vomiting, unspecified
CPT/HCPCS: 59025; 80305; 81001; G0463

== ENCOUNTER → 2022-06-01 13:23 | Outpatient (CLI) | payer BC, SELFPAY ==
[2022-06-01 14:08] LABS: Basophils % 0.3 % (0.1-2.0); Eosinophils # 0.1 K/mm3 (0.0-0.4); Eosinophils % 0.8 % (0.1-12.0); Hematocrit 33.3 % (37.0-47.0); Hemoglobin 10.9 g/dL (12.2-16.2); Lymphocytes # 2.3 K/mm3 (0.7-4.5); Lymphocytes % 20.1 % (10-50); Mean Corpuscular HGB Conc 32.6 g/dL (31.8-35.4); Mean Corpuscular Hemoglobin 28.1 pg (27.0-31.2); Mean Corpuscular Volume 86.3 fl (81-99); Mean Platelet Volume 10.9 fl (7.4-10.4); Monocytes # 0.4 K/mm3 (0.1-1.0); Monocytes % 3.8 % (1.7-9.3); Neutrophils # 8.6 K/mm3 (1.8-7.8); Platelet Count 256 K/mm3 (142-424); Red Blood Count 3.86 M/mm3 (4.20-5.40); Red Cell Distribution Width 13.7 % (11.5-17.5); White Blood Count 11.4 K/mm3 (4.8-10.8)
[2022-06-01 15:09] LABS: Alanine Aminotransferase 31 U/L (12-78); Albumin Level 3.3 g/dl (3.5-5.0); Albumin/Globulin Ratio 1.3 (1.1-1.8); Alkaline Phosphatase 185 U/L (38-126); Anion Gap 7.2 mEq/L (5-15); Aspartate Amino Transferase 31 U/L (14-36); Bilirubin,Total 0.3 mg/dl (0.2-1.3); Blood Urea Nitrogen 4 mg/dl (7-17); Calcium 8.9 mg/dl (8.4-10.2); Carbon Dioxide 26 mmol/L (22.0-30.0); Chloride 104 mmol/L (98-107); Estimated Glomerular Filt Rate 114 ml/min (>60); GFR (African American) 138 ML/MIN (>60); Globulin 2.6 g/dL (1.3-3.2); Glucose 95 mg/dl (74-100); Potassium 3.2 mmoL/L (3.5-5.1); Sodium 134 mmol/L (136-145); Total Protein,Serum 5.9 g/dl (6.3-8.2)
== END ==
PROVIDERS: PCP Internal Medicine Adolescent Medicine; Visit Provider Obstetrics & Gynecology
DX: D72.829 Elevated white blood cell count, unspecified (principal); E87.6 Hypokalemia
CPT/HCPCS: 36415; 80053; 85025; 86403

== ENCOUNTER → 2022-06-01 17:03 | Outpatient (CLI) | payer BC, SELFPAY | PROVIDERS: PCP Obstetrics & Gynecology; Visit Provider Obstetrics & Gynecology | DX: Z34.90 Encounter for supervision of normal pregnancy, unspecified, unspecified trimester (principal) ==

== ENCOUNTER 2022-06-07 16:58 | Inpatient (IN) | payer BC, SELFPAY ==
[2022-06-07 17:12] VITALS: BMI 37.5
[2022-06-07 17:39] VITALS: BMI 37.5
[2022-06-07 17:52] LABS: Microscopic, Urine URINE MICROSCOPIC (MICROSCOPIC)
[2022-06-07 17:52] LABS: Coronavirus 19, PCR Not Detected (NotDetected); Influenza A, PCR Not Detected (NotDetected); Influenza B, PCR Not Detected (NotDetected)
[2022-06-07 17:57] LABS: Appearance,Urine CLEAR (Clear); Blood, Urine Negative (Negative); Color,Urine YELLOW (Yellow); Glucose,Urine (UA) Negative (Negative); Ketones,Urine Negative (Negative); Leukocyte Esterase,Urine Negative (Negative); Nitrate,Urine Negative (Negative); Protein,Urine TRACE (Negative); Specific Gravity, Urine >= 1.030 (1.005-1.030)
[2022-06-07 18:05] LABS: D-Dimer 0.86 ug/mL (0.0-0.5)
[2022-06-07 18:17] LABS: Activated Partial Thrombo Time 26.5 seconds (22.8-30.6); Fibrinogen 542 mg/dL (229.9-363.5); INR 0.88 (0.9-1.1); Prothrombin Time 9.6 seconds (10.1-12.5)
[2022-06-07 18:28] LABS: Amphetamine/Metha Screen,Urine Negative ng/ml (<1000)
[2022-06-07 18:28] LABS: Basophils # 0.1 K/mm3 (0-0.2); Basophils % 0.5 % (0.1-2.0); Eosinophils # 0.1 K/mm3 (0.0-0.4); Eosinophils % 0.8 % (0.1-12.0); Hematocrit 33.3 % (37.0-47.0); Hemoglobin 11.2 g/dL (12.2-16.2); Lymphocytes # 3.6 K/mm3 (0.7-4.5); Lymphocytes % 24.7 % (10-50); Mean Corpuscular HGB Conc 33.7 g/dL (31.8-35.4); Mean Corpuscular Hemoglobin 28.5 pg (27.0-31.2); Mean Corpuscular Volume 84.6 fl (81-99); Mean Platelet Volume 11.1 fl (7.4-10.4); Monocytes # 0.6 K/mm3 (0.1-1.0); Monocytes % 4.2 % (1.7-9.3); Neutrophils # 10.2 K/mm3 (1.8-7.8); Neutrophils % 69.7 % (37.0-80.0); Platelet Count 271 K/mm3 (142-424); Red Blood Count 3.94 M/mm3 (4.20-5.40); Red Cell Distribution Width 13.7 % (11.5-17.5); White Blood Count 14.7 K/mm3 (4.8-10.8)
[2022-06-07 18:42] LABS: Benzodiazepines Screen,Urine Negative ng/ml (<200); Bilirubin,Urine 1+ (Negative)
[2022-06-07 18:43] LABS: Barbiturates Screen,Urine Negative ng/ml (<200)
[2022-06-07 18:44] LABS: Cannabinoid Screen,Urine Negative ng/ml (<50)
[2022-06-07 18:45] LABS: Cocaine Screen,Urine Negative ng/ml (<300); Methadone Screen,Urine Negative ng/ml (<300)
[2022-06-07 18:46] LABS: Phencyclidine Screen,Urine Negative ng/ml (<25)
[2022-06-07 18:47] LABS: Opiate Screen,Urine Negative ng/ml (<300)
[2022-06-07 18:54] LABS: Alanine Aminotransferase 30 U/L (12-78); Anion Gap 11.1 mEq/L (5-15); Aspartate Amino Transferase 30 U/L (14-36); Blood Urea Nitrogen 7 mg/dl (7-17); Carbon Dioxide 23 mmol/L (22.0-30.0); Chloride 105 mmol/L (98-107); Creatinine Clearance Estimated 225 mL/min (50-200); Estimated Glomerular Filt Rate 114 ml/min (>60); GFR (African American) 138 ML/MIN (>60); Glucose 81 mg/dl (74-100); Potassium 3.1 mmoL/L (3.5-5.1); Sodium 136 mmol/L (136-145); Uric Acid 3.9 mg/dl (2.5-6.2)
[2022-06-07 19:38] LABS: WBC,Urine Occasional #/hpf (0-3)
[2022-06-07 19:39] LABS: Bacteria,Urine 3+ /lpf; RBC,Urine Occasional #/hpf (0-3); Squamous Epithelial Cell,Urine 20-50 #/hpf (0-5)
[2022-06-07 21:03] VITALS: BP 125/56; PULSE 82; RESP 19; TEMP 36.3; O2SAT 99
[2022-06-08 04:11] VITALS: BP 112/61; PULSE 56; RESP 19; TEMP 36.6; O2SAT 100
[2022-06-08 07:18] VITALS: BP 133/75; PULSE 69; RESP 17; TEMP 36.6; O2SAT 100
--- NOTE | 2022-06-08 07:42 | HMH.PHAINT1 ---
Pharmacy Intervention Comments: MEDICATION RECONCILIATION COMPLETED ON PATIENT USING EXTERNAL FILL HISTORY FROM PHARMACY. -LISA WHEELER, CRYSTALD
--- NOTE | 2022-06-08 08:43 | EXP.HP ---
History of Present Illness *Admission Date: 06/07/22 *Reason for visit:: Induction of labor *History of present illness: 36 yo @ 37 wks PHILIP 06/29/22; dating by 6 08/[address] [facility]-- Dr. Sigala complicated by advanced maternal age, anemia and hypertension She has been following weekly in office with NST and is reporting decreased movement She was brought in for cervical ripening and balloon catheter, with successful dilation monitoring has been reassuring since admission OB history significant for 2 previous SAB and one rupture ectopic [facility] Disclaimer: The information contained in this section may have been updated after the patient was seen, as this information can be updated by other users. Medical History History of ectopic Surgical History H/O LEEP History of eye surgery Family History Other No significant family history Social History Smoking Status: Current every day smoker tobacco type: cigarettes packs per day: 1 years smoked: 6 quit status: not considering quitting alcohol intake: never substance use type: denies use current occupational status: unemployed Travel in the last 8 weeks: None household members: spouse and family housing: house current occupational exposures/hazards: No caffeine: Yes physical activity: none do you feel safe at home: No victim of physical abuse: No victim of emotional abuse: No victim of sexual abuse: No would you like helpful sources: No Review of Systems Constitutional Constitutional: Reports system reviewed and no additional complaints, except as documented and Denies headache(s) ENT Ears, Nose, Mouth, and Throat: Denies headache(s) *Genitourinary Genitourinary: Denies abnormal vaginal bleeding *Neurologic Neurologic: Denies headache(s) and Denies other visual disturbances Meds Home Medications and Allergies Home Medications Medication Instructions Recorded Confirmed Type ferrous sulfate 142 mg (45 mg 142 mg PO DAILY Supplement 06/07/22 06/07/22 History iron) tablet,extended release (Slow Fe) ondansetron 4 mg disintegrating 4 mg PO Q6H Nausea & vomiting 06/07/22 06/07/22 History tablet pantoprazole 40 mg tablet,delayed 40 mg PO DAILY GERD 06/07/22 06/07/22 History release (Protonix) vits no.126-ferrous fum 1 tab PO DAILY Supplement 06/07/22 06/07/22 History 28 mg iron-folic acid 800 mcg tablet (Classic ) promethazine 12.5 mg tablet 12.5 mg PO Q6HP PRN nausea and 06/08/22 06/08/22 History vomiting New Prescriptions to Start Prescriptions: Allergies Allergy/AdvReac Type Severity Reaction Status Date / Time acetaminophen [From Percocet] Allergy Intermediate Itching Verified 06/01/22 14:21 oxycodone [From Percocet] Allergy Intermediate Itching Verified 06/01/22 14:21 propoxyphene Allergy Intermediate Rash,Itchin Verified 06/01/22 14:21 g tramadol Allergy Intermediate Hives Verified 06/01/22 14:21 iopamidol [From [id number]] Allergy Difficulty Verified 06/01/22 14:21 Breathing prednisone AdvReac Gastrointestinal Verified 06/01/22 14:21 Upset MUSCLE RELAXANTS Allergy Unknown Uncoded 06/01/22 14:21 Exam Data for Last 24 hours Vital signs and Labs for Last 24 Hours: Temp Pulse Resp BP Pulse Ox 98.5 F 85 18 129/65 97 06/08/22 16:22 06/08/22 16:22 06/08/22 16:22 06/08/22 16:22 06/08/22 16:22 Laboratory Results - last 24 hr 06/07/22 17:10: Urine Color Yellow, Urine Appearance Clear, Urine pH 6.0, Ur Specific [place] >= 1.030, Urine Protein Trace, Urine Glucose (UA) Negative, Urine Ketones Negative, Urine Blood Negative, Urine Nitrate Negative, Urine Bilirubin 1+
--- NOTE | 2022-06-08 09:48 | EXP.ANES.CKL ---
[facility] Disclaimer: The information contained in this section may have been updated after the patient was seen, as this information can be updated by other users. Medical History History of ectopic Surgical History H/O LEEP History of eye surgery Family History Other No significant family history Social History Smoking Status: Current every day smoker tobacco type: cigarettes packs per day: 1 years smoked: 6 quit status: not considering quitting alcohol intake: never substance use type: denies use current occupational status: unemployed Travel in the last 8 weeks: None household members: spouse and family housing: house current occupational exposures/hazards: No caffeine: Yes physical activity: none do you feel safe at home: No victim of physical abuse: No victim of emotional abuse: No victim of sexual abuse: No would you like helpful sources: No [facility] Anesthesia Checklist Patient Identification Patient Identification: Verbal (Name & ) Structural Data Admitted From: Inpatient Planned Operative Procedure/s: labor epidural Consent for Planned Operative Procedure(s) Verified: Yes Additional verifications Anesthesia Reactions: No Hx Blood Transfusions: No Blood Transfusion Reaction: No Airway Assessment C-Spine Mobility Assessed: Yes TMJ Mobility Assessed: Yes Neurological Assessment Level of Consciousness: Awake, Alert and Appropriate Anesthesia Plan Anesthesia Risk discussed: Yes Anesthesia Plan: Verified ASA Class: II Anesthesia Type: Epidural
[2022-06-08 16:22] VITALS: BP 129/65; PULSE 85; RESP 18; TEMP 36.9; O2SAT 97
--- NOTE | 2022-06-08 17:52 | EXP.DN ---
Delivery Note Delivery Date:: 06/08/22 Delivery Time:: 11:50 Anesthesia Type: Epidural Was labor medically induced?: Yes Induction method: per pitocin protocol Gestational age (weeks): 37 delivered prior to 39 weeks?: Yes Justification for early elective delivery:: Benign Hypertension Gender: Female at 1 minute: 8 at 5 minutes: 9 Delivery Procedure:: Spontaneous vaginal delivery of live born female over intact perineum. Delivery uncomplicated Body cord reduced during delivery No shoulder dystocia with delivery placed in JOSY immediately after delivery, with standard nursing assessment performed Infant Apgars: 8 & 9 Placenta spontaneously expressed and examined; noted to be complete/intact. Vulva, vagina, and cervix inspected; no lacerations EBL: 300 cc All sponge/needle/instrument counts correct at conclusion of procedure Mother and infant stable to recovery Placental Delivery Description: Spontaneous
[2022-06-09 04:26] VITALS: BP 121/67; PULSE 74; RESP 17; TEMP 36.7; O2SAT 99
[2022-06-09 08:12] VITALS: BP 147/69; PULSE 81; RESP 17; TEMP 36.8; O2SAT 99
[2022-06-09 08:25] LABS: Hematocrit 32.8 % (37.0-47.0); Hemoglobin 10.5 g/dL (12.2-16.2)
--- NOTE | 2022-06-09 11:03 | EXP.DC.SUM ---
General Admission date:: 06/07/22 HPI HPI HPI: 36 yo @ 37 wks PHILIP 06/29/22; dating by 08/08 ultrasound care at [facility]-- Dr. 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 cleared by auxiliary powerplant operator She is tolerating a regular diet She is ambulating and voiding without difficulty Lochia is appropriate and she declines pain medication at discharge Hgb 10.1 Potassium was low on admission (3.1) so she was given po potassium prior to discharge Exam Data for Last 24 hours Vital signs and Labs for Last 24 Hours: Temp Pulse Resp BP Pulse Ox 98.2 F 81 17 147/69 H 99 06/09/22 08:12 06/09/22 08:12 06/09/22 08:12 06/09/22 08:12 06/09/22 08:12 Laboratory Results - last 24 hr 06/09/22 07:55: Hgb 10.5 L, Hct 32.8 L I & O for Last 24 hours: Intake & Output 06/06/22 06/07/22 06/08/22 06/09/22 11:59 11:59 11:59 11:59 Weight 240 lb Microbiology Reports for the Last 24 Hours: Microbiology 06/07/22 17:10 Urine,Clean Catch Urine Culture - Preliminary NO GROWTH AFTER 24 HOURS Constitutional Constitutional: no acute distress *Routine HEENT Exam Head: Present normocephalic Eye: Absent conjunctival icterus or scleral injection ENT: Present mucous membranes moist *Routine Neck Exam Neck: Present supple *Routine Respiratory Exam Respiratory: Present CTA bilaterally *Routine Cardiovascular Exam Cardiovascular: Present RRR *Routine Abdominal Exam Abdominal: Present soft; Absent tenderness or distended *Routine Rectal Exam Patient deferred: visual exam and digital exam *Routine Exam Patient deferred: external exam Comments: Fundus firm below umbilicus *Routine Extremities Exam Extremities: Present edema *Routine Neurological Exam Neurological: Present alert and oriented X3 Routine Psychiatric Exam Psychiatric: Present normal affect; Absent depressed Results Data Completed and Pending Labs on day of discharge: Labs from last 24 hours 06/09/22 07:55 Hgb 10.5 L Hct 32.8 L Preliminary micro results at discharge 06/07/22 17:10 Urine Culture - Preliminary Urine,Clean Catch NO GROWTH AFTER 24 HOURS DS: Diagnosis Discharge Diagnosis (1) 37 weeks gestation of : Status: Acute (2) AMA (advanced maternal age) multigravida 35+: Status: Acute (3) Hypertension affecting : Status: Acute (4) Decreased movement affecting management of in third trimester: Status: Acute (5) Family history of Duchenne muscle dystrophy: Status: Acute Problem details: 2 brothers Meds Home Medications and Allergies Home Medications Medication Instructions Recorded Confirmed Type ferrous sulfate 142 mg (45 mg 142 mg PO DAILY Supplement 06/07/22 06/07/22 History iron) tablet,extended release (Slow Fe) ondansetron 4 mg disintegrating 4 mg PO Q6H Nausea & vomiting 06/07/22 06/07/22 History tablet pantoprazole 40 mg tablet,delayed 40 mg PO DAILY GERD 06/07/22 06/07/22 History release (Protonix) vits no.126-ferrous fum 1 tab PO DAILY Supplement 06/07/22 06/07/22 History 28 mg iron-folic acid 800 mcg tablet (Classic ) promethazine 12.5 mg tablet 12.5 mg PO Q6HP PRN nausea and 06/08/22 06/08/22 History vomiting ibuprofen 400 mg tablet 800 mg PO Q6HP PRN CRAMPING/PAIN 06/09/22 Rx #30 tabs New Prescriptions to S
== END 2022-06-09 19:25 | disposition home or self-care (01) | DRG 807 ==
PROVIDERS: Admitting Provider Obstetrics & Gynecology; PCP Internal Medicine Adolescent Medicine; Visit Provider Obstetrics & Gynecology
DX: O16.4 Unspecified maternal hypertension, complicating childbirth (principal); Z37.0 Single live birth; O99.02 Anemia complicating childbirth; Z3A.37 37 weeks gestation of pregnancy; O36.8130 Decreased fetal movements, third trimester, not applicable or unspecified; O99.334 Smoking (tobacco) complicating childbirth; F17.210 Nicotine dependence, cigarettes, uncomplicated
CPT/HCPCS: 59409; 36415; 59025; 80048; 80305; 81001; 84450; 84460; 84550; 85014; 85018; 85025; 85378; 85384; 85610; 85730; 86850; 87086; 94761; C1758; C9803; G0283; U0003; U0005

== ENCOUNTER → 2022-07-31 12:46 | Outpatient (CLI) | payer BC, SELFPAY ==
[2022-07-31 14:10] LABS: Basophils # 0.1 K/mm3 (0-0.2); Basophils % 0.6 % (0.1-2.0); Eosinophils # 0.2 K/mm3 (0.0-0.4); Eosinophils % 2.2 % (0.1-12.0); Hematocrit 37.7 % (37.0-47.0); Hemoglobin 11.9 g/dL (12.2-16.2); Lymphocytes # 3.2 K/mm3 (0.7-4.5); Lymphocytes % 30.9 % (10-50); Mean Corpuscular HGB Conc 31.4 g/dL (31.8-35.4); Mean Corpuscular Hemoglobin 25.9 pg (27.0-31.2); Mean Corpuscular Volume 82.4 fl (81-99); Mean Platelet Volume 9.9 fl (7.4-10.4); Monocytes # 0.4 K/mm3 (0.1-1.0); Monocytes % 4.2 % (1.7-9.3); Neutrophils # 6.4 K/mm3 (1.8-7.8); Neutrophils % 62.1 % (37.0-80.0); Platelet Count 366 K/mm3 (142-424); Red Blood Count 4.58 M/mm3 (4.20-5.40); Red Cell Distribution Width 13.7 % (11.5-17.5); White Blood Count 10.2 K/mm3 (4.8-10.8)
[2022-07-31 14:49] LABS: Alanine Aminotransferase 29 U/L (12-78); Albumin Level 4.3 g/dl (3.5-5.0); Albumin/Globulin Ratio 1.8 (1.1-1.8); Alkaline Phosphatase 84 U/L (38-126); Anion Gap 11.3 mEq/L (5-15); Aspartate Amino Transferase 28 U/L (14-36); Bilirubin,Total 0.3 mg/dl (0.2-1.3); Blood Urea Nitrogen 8 mg/dl (7-17); Calcium 9.2 mg/dl (8.4-10.2); Carbon Dioxide 26 mmol/L (22.0-30.0); Chloride 106 mmol/L (98-107); Estimated Glomerular Filt Rate 95 ml/min (>60); GFR (African American) 115 ML/MIN (>60); Globulin 2.4 g/dL (1.3-3.2); Glucose 86 mg/dl (74-100); Potassium 4.3 mmoL/L (3.5-5.1); Sodium 139 mmol/L (136-145); Total Protein,Serum 6.7 g/dl (6.3-8.2)
[2022-07-31 15:11] LABS: HCG,Quantitative < 2 mIU/ml (0-5.42)
== END ==
PROVIDERS: PCP Internal Medicine Adolescent Medicine; Visit Provider Obstetrics & Gynecology
DX: Z30.09 Encounter for other general counseling and advice on contraception (principal)
CPT/HCPCS: 36415; 80053; 84702; 85025

== ENCOUNTER 2022-08-03 06:16 | Day surgery (SDC) | payer BC, SELFPAY ==
[2022-07-31 12:42] VITALS: BMI 36.3
[2022-08-03] VITALS (11 sets, daily range): BP systolic 114–136; BP diastolic 64–93; PULSE 65–72; RESP 16–26; TEMP 36.2–43; O2SAT 95–100
--- NOTE | 2022-08-03 06:59 | EXP.ANES.CKL ---
[facility] Disclaimer: The information contained in this section may have been updated after the patient was seen, as this information can be updated by other users. Medical History (Updated 08/03/22 @ 06:34 by Rio Lundy RN) Allergies Anxiety Asthma Bronchitis Depression Gallbladder disease History of anemia History of COVID-19 History of ectopic History of ectopic History of gastroesophageal reflux (GERD) Hypertension Migraine Sinus headache Surgical History H/O LEEP History of cholecystectomy History of eye surgery Family History Other No significant family history Social History Smoking Status: Current every day smoker tobacco type: cigarettes packs per day: 1 years smoked: 20 quit status: not considering quitting alcohol intake: former substance use type: denies use current occupational status: employed Travel in the last 8 weeks: None household members: spouse and family housing: house current occupational exposures/hazards: No caffeine: Yes physical activity: none do you feel safe at home: No victim of physical abuse: No victim of emotional abuse: No victim of sexual abuse: No would you like helpful sources: No [facility] Anesthesia Checklist Patient Identification Patient Identification: Verbal (Name & ) Structural Data Admitted From: Home Planned Operative Procedure/s: bilat salpingectomy Consent for Planned Operative Procedure(s) Verified: Yes NPO Status Verified Time NPO: 00:00 Additional verifications Anesthesia Reactions: No Hx Blood Transfusions: No Blood Transfusion Reaction: No Airway Assessment C-Spine Mobility Assessed: Yes TMJ Mobility Assessed: Yes Dentition: Good Dentition Neurological Assessment Level of Consciousness: Awake, Alert and Appropriate Anesthesia Plan Anesthesia Risk discussed: Yes Anesthesia Plan: Verified ASA Class: II Anesthesia Type: General
--- NOTE | 2022-08-03 09:13 | P.PNANES_ITS ---
[facility] Anesthesia Record Part I Anesthesia Record I Intake, IV Amount: 900 Estimated blood loss (mL): 15 Urine output (mL): 50 Blood Products used (#): none Blood Pressure: 131/84 SaO2: 97 Pulse Rate: 72 Respiratory Rate: 26 Temperature: 97.1 F Patient is:: Drowsy and Stable Stable to PACU at:: 09:04
--- NOTE | 2022-08-03 09:28 | P.OP_ITS ---
Date of procedure: 08/03/22 Pre-op Diagnosis:: 1. Undesired fertility 2. Previous ectopic 3. Previous right salpingectomy Post-op Diagnosis:: Same Procedure performed:: Diagnostic laparoscopy, left salpingectomy Surgeon:: Dee Sigala MD RESERVATIONS AND TICKETING AGENT:: Other Anesthesia: GETA Estimated blood loss (mL): 10 Operative findings:: Normal appearing uterus, left fallopian tube and bilateral ovaries Operative note:: The patient was taken to the operating room and general anesthesia was administered. She was prepped/draped in lithotomy position. A uterine manipulator was placed without difficulty. Gloves were changed and attention was turned to the abdomen. A 5mm skin incision was made in the umbilical fold and the Verees needle was inserted through the peritoneum and into the abdominal cavity in standard fashion. The abdomen was insufflated with CO2 gas. A 5mm non-bladed trocar was inserted directly into the abdominal cavity and appropriate placement was confirmed with the laparoscope. No intra-abdominal injuries occurred during entry into the abdominal cavity, as confirmed visually with the laparoscope. The patient was placed in trendelenburg and an 11mm skin incision was made 2cm above the pubic symphysis. An 11mm non-bladed trocar was inserted under direct visualization, without complication. A 5mm skin incision was made in the LLQ and a 5mm non-bladed trocar was inserted under direct v isualization. The uterus was elevated out of the pelvis in order to better visualize the anatomy. A survey of the pelvis and abdomen revealed normal appearing pelvic anatomy. The right fallopian tube had been removed previously due to a rupture ectopic . The uterus was angled towards the patient right and the left fallopian tube was grasped and excised using the harmonic scalpel. Once the tube was completely excised, it was removed through the 11mm trocar. The uterine manipulator was removed. The abdomen was then evacuated of gas and all trocars removed. The skin incisions were closed with 4-0 monocryl and Dermabond. The patient tolerated the procedure well. EBL 10cc. Sponge/lap/needle/instrument counts were correct at conclusion of procedure. She was taken out of lithotomy position and awakened from anesthesia, and was taken to the recovery room in stable condition. Condition: stable Disposition: PACU Specimens:: Left fallopian tube Complications:: None
--- NOTE | 2022-08-03 19:12 | P.PNANES_ITS ---
[facility] Anesthesia Record Part II Anesthesia Record Part II Discharge Time: 09:34 Destination: Surgical Day Care (OP Surgery) PACU nurse assessment reviewed?: Yes Patient Condition:: Good Anesthesia Complications:: None Swallowing reflex intact?: Yes Cyanosis?: No Blood Pressure: 134/88 Pulse Rate: 65 Temperature: 97.4 F Mental Status: Alert & Oriented Pain level:: 0 Nausea and/or vomitting:: None Intake, IV Amount: 0
== END 2022-08-03 10:15 | disposition home or self-care (01) ==
PROVIDERS: PCP Internal Medicine Adolescent Medicine; Visit Provider Obstetrics & Gynecology
PROC: (CPT 49320; principal; 2022-08-03 07:30)
DX: Z30.2 Encounter for sterilization (principal); Z87.59 Personal history of other complications of pregnancy, childbirth and the puerperium; F17.210 Nicotine dependence, cigarettes, uncomplicated
CPT/HCPCS: 58661; 88302; 96374; J2405

== ENCOUNTER → 2022-10-04 11:40 | Outpatient (CLI) | payer BC, SELFPAY ==
[2022-10-04 11:58] VITALS: BMI 38.9
== END | disposition home or self-care (01) ==
LOC: UTC.OUT 11:41
PROVIDERS: PCP Internal Medicine Adolescent Medicine; Visit Provider Nurse Practitioner
DX: Z11.1 Encounter for screening for respiratory tuberculosis (principal)
CPT/HCPCS: 86580

== ENCOUNTER → 2022-10-11 11:36 | Outpatient (CLI) | payer BC, SELFPAY | PROVIDERS: PCP Internal Medicine Adolescent Medicine; Visit Provider Nurse Practitioner Family | DX: Z11.1 Encounter for screening for respiratory tuberculosis (principal) | CPT/HCPCS: 86580 ==

== ENCOUNTER → 2022-10-19 10:51 | Outpatient (CLI) | payer BC, SELFPAY ==
[2022-10-19 11:32] LABS: Basophils % 0.3 % (0.1-2.0); Eosinophils # 0.3 K/mm3 (0.0-0.4); Eosinophils % 2.3 % (0.1-12.0); Hematocrit 38.2 % (37.0-47.0); Hemoglobin 12.3 g/dL (12.2-16.2); Lymphocytes # 3.8 K/mm3 (0.7-4.5); Lymphocytes % 30.8 % (10-50); Mean Corpuscular HGB Conc 32.2 g/dL (31.8-35.4); Mean Corpuscular Hemoglobin 25.2 pg (27.0-31.2); Mean Corpuscular Volume 78.3 fl (81-99); Mean Platelet Volume 9.4 fl (7.4-10.4); Monocytes # 0.5 K/mm3 (0.1-1.0); Monocytes % 4.3 % (1.7-9.3); Neutrophils # 7.7 K/mm3 (1.8-7.8); Neutrophils % 62.2 % (37.0-80.0); Platelet Count 312 K/mm3 (142-424); Red Blood Count 4.87 M/mm3 (4.20-5.40); Red Cell Distribution Width 15.5 % (11.5-17.5); White Blood Count 12.3 K/mm3 (4.8-10.8)
[2022-10-19 11:50] LABS: Alanine Aminotransferase 23 U/L (12-78); Albumin Level 4.2 g/dl (3.5-5.0); Albumin/Globulin Ratio 1.8 (1.1-1.8); Alkaline Phosphatase 84 U/L (38-126); Anion Gap 12.2 mEq/L (5-15); Aspartate Amino Transferase 25 U/L (14-36); Bilirubin,Total 0.4 mg/dl (0.2-1.3); Blood Urea Nitrogen 11 mg/dl (7-17); Calcium 9.1 mg/dl (8.4-10.2); Carbon Dioxide 24 mmol/L (22.0-30.0); Chloride 105 mmol/L (98-107); Estimated Glomerular Filt Rate 114 ml/min (>60); GFR (African American) 138 ML/MIN (>60); Globulin 2.4 g/dL (1.3-3.2); Glucose 93 mg/dl (74-100); Potassium 4.2 mmoL/L (3.5-5.1); Sodium 137 mmol/L (136-145); Total Protein,Serum 6.6 g/dl (6.3-8.2)
[2022-10-19 12:10] LABS: HCG,Quantitative < 2 mIU/ml (0-5.42)
== END ==
PROVIDERS: PCP Internal Medicine Adolescent Medicine; Visit Provider Obstetrics & Gynecology
DX: Z01.812 Encounter for preprocedural laboratory examination (principal); N92.0 Excessive and frequent menstruation with regular cycle
CPT/HCPCS: 36415; 80053; 84702; 85025

== ENCOUNTER 2022-10-20 08:07 | Day surgery (SDC) | payer BC, SELFPAY ==
[2022-10-18 12:32] VITALS: BMI 38.3
[2022-10-20] VITALS (10 sets, daily range): BP systolic 106–129; BP diastolic 66–81; PULSE 57–71; RESP 14–20; TEMP 36.4–36.6; O2SAT 96–100
--- NOTE | 2022-10-20 09:51 | P.PN_ITS ---
[facility] Disclaimer: The information contained in this section may have been updated after the patient was seen, as this information can be updated by other users. Medical History Allergies Anxiety Asthma Bronchitis Depression Family history of Duchenne muscle dystrophy Gallbladder disease History of anemia History of COVID-19 History of ectopic History of gastroesophageal reflux (GERD) Hypertension Migraine Sinus headache Surgical History H/O LEEP History of cholecystectomy History of eye surgery History of salpingectomy Family History Other No significant family history Social History Smoking Status: Current every day smoker tobacco type: cigarettes packs per day: 1 years smoked: 20 quit status: not considering quitting alcohol intake: never substance use type: denies use current occupational status: employed Travel in the last 8 weeks: None household members: spouse and family housing: house current occupational exposures/hazards: No caffeine: Yes do you feel safe at home: No victim of physical abuse: No victim of emotional abuse: No victim of sexual abuse: No would you like helpful sources: No [facility] Anesthesia Checklist Patient Identification Patient Identification: Arm Band and Verbal (Name & ) Structural Data Admitted From: Home Planned Operative Procedure/s: Hyst/D& C Consent for Planned Operative Procedure(s) Verified: Yes NPO Status Verified Time NPO: 00:00 Additional verifications Anesthesia Reactions: No Hx Blood Transfusions: No Blood Transfusion Reaction: No Airway Assessment C-Spine Mobility Assessed: Yes TMJ Mobility Assessed: Yes Dentition: Good Dentition Neurological Assessment Level of Consciousness: Awake Hx Seizures: No Numbness or tingling in extremities: No Anesthesia Plan Anesthesia Risk discussed: Yes Anesthesia Plan: Verified ASA Class: III Anesthesia Type: General
--- NOTE | 2022-10-20 11:03 | EXP.ANES.I ---
[facility] Anesthesia Record Part I Anesthesia Record I Intake, IV Amount: 700 Estimated blood loss (mL): 5 Urine output (mL): 0 Blood Pressure: 129/73 SaO2: 98 Pulse Rate: 71 Respiratory Rate: 18 Temperature: 97.8 F Patient is:: Drowsy and Oral/Nasal airway Stable to PACU at:: 11:03
--- NOTE | 2022-10-20 11:31 | EXP.OP.NOTE ---
Date of procedure: 10/20/22 Pre-op Diagnosis:: 1. Heavy menstrual bleeding 2. Dysfunctional uterine bleeding 3. Previous tubal ligation Post-op Diagnosis:: Same Procedure performed:: D&C Hysteroscopy Novasure Endometrial Ablation Surgeon:: Dee Sigala MD NEW HOME SALES CONSULTANT:: Abelino Trimble Anesthesia: GETA Estimated blood loss (mL): 5 Operative findings:: Normal uterine cavity without fibroids or polyps Operative note:: The patient was taken to the OR where general anesthesia was administered without difficulty. She was prepped/draped in the normal sterile fashion in supine position. The cervix was dilated until hysteroscope could be accomodated. The hysteroscope was introduced through the cervix into the uterus and the cavity surveyed. The cavity appeared grossly normal, with no polyps or fibroids observed within the cavity. The Novasure device was introduced into the uterus. The cavity length was measured at 5.5cm and width at 4.5cm, and the cavity assessment was successful. The Novasure was deployed and the endometrial ablation was completed in 112 seconds, and without complication. All instruments were removed from her vagina, she was awakened from anesthesia and taken to PACU in stable condition. Condition: stable Disposition: PACU Specimens:: Endometrial curettings Complications:: None
--- NOTE | 2022-10-20 15:30 | EXP.ANES.II ---
[facility] Anesthesia Record Part II Anesthesia Record Part II Discharge Time: 11:33 Destination: Surgical Day Care (OP Surgery) PACU nurse assessment reviewed?: Yes Patient Condition:: Good Anesthesia Complications:: None Swallowing reflex intact?: Yes Cyanosis?: No Blood Pressure: 127/66 Pulse Rate: 63 Temperature: 97.8 F Mental Status: Alert & Oriented Pain level:: 0 Nausea and/or vomitting:: None Intake, IV Amount: 0
== END 2022-10-20 12:08 | disposition home or self-care (01) ==
PROVIDERS: PCP Internal Medicine Adolescent Medicine; Visit Provider Obstetrics & Gynecology
PROC: (CPT 58563; principal; 2022-10-20 09:15)
DX: N92.0 Excessive and frequent menstruation with regular cycle (principal); N93.8 Other specified abnormal uterine and vaginal bleeding; Z98.51 Tubal ligation status; F17.210 Nicotine dependence, cigarettes, uncomplicated; Z79.899 Other long term (current) drug therapy
CPT/HCPCS: 58563; 96374; J2405

== ENCOUNTER 2023-07-06 16:17 | Outpatient (CLI) | payer BC, SELFPAY ==
--- NOTE | 2023-07-06 16:22 | US_ITS ---
PROCEDURE: US TRANSVAGINAL CLINICAL INDICATION: pelvic pain COMPARISON: No exams were available for comparison FINDINGS: Transvaginal sonographic images of the pelvis were obtained. UTERUS: 7.6 cm x 5.0cmx 3.8 cm retroverted with a combined endometrial thickness of 8.2mm. LEFT OVARY: 3.4cmx2.1cmx2.2cm with a volume of 8.6ml. Left ovary has a polycystic appearance. RIGHT OVARY: 3.6 cmx 3.0cmx2.3cm with a volume of 10.1ml. Both ovaries are seen and appear normal. Doppler flow to both ovaries are seen. There is no fluid in the cul-de-sac. IMPRESSION: 1. Retroverted uterus normal in shape and size. 2. The endometrium is normal measuring 8.2 mm. 3. Both ovaries are seen and appear normal. The left ovary has a more polycystic appearance. 4. No fluid in the cul-de-sac. Dictated by: Mitesh Hirsch MD 07/07/2023 15:02 Mitesh Hirsch MD in OV 07/07/2023 15:02
== END 2023-07-06 23:59 ==
LOC: RAD 16:17
PROVIDERS: PCP Internal Medicine Adolescent Medicine; Visit Provider Nurse Practitioner Obstetrics & Gynecology
DX: R10.2 Pelvic and perineal pain (principal)
CPT/HCPCS: 76830

== ENCOUNTER 2023-07-16 14:06 | Emergency (ER) | payer BC, SELFPAY ==
[2023-07-16 15:20] VITALS: BP 150/70; PULSE 76; RESP 20; TEMP 36.9; O2SAT 98; BMI 40.5
--- NOTE | 2023-07-16 15:56 | ED_ITS ---
Discharge Plan Disposition Patient Disposition: Home, Self-Care Condition: Good Prescriptions Prescriptions: New amoxicillin-pot clavulanate 875-125 mg Tablet 1 tab PO Q12H Qty: 20 0RF guaifenesin [Mucinex] 600 mg tablet extended release 12hr 1,200 mg PO BID PRN (Reason: cough) Qty: 20 0RF Referrals Follow up/Referrals: Barney Carnes MD [Primary Care Provider] - See instructions Activity Restrictions/Add. Instructions Additional Instructions/Restrictions: * Start antibiotic today. Be sure to complete entire prescription even if feeling better * Monitor temp. Tylenol every 4 hours as needed and / or ibuprofen every 6 hours as needed ( As long as your primary care physician has told you that it ok to take both. For fever/aches/pains ER if no less than 101 despite Tylenol or Motrin * Humidifier/vaporizer or hot steamy shower * Mucinex for your cough Be sure to drink lots of water. Follow up IMMEDIATELY for new or worsening of symptoms OR no noticeable improvement over the next 48-72 hours. 911 immediately for any life threatening symptoms such as chest pain or difficulty breathing Clinical Impressions Clinical Impression: Sinusitis Qualifiers: Sinusitis location: unspecified location Chronicity: unspecified Qualified Code(s): J32.9 - Chronic sinusitis, unspecified Instructions Patient Instructions: DI for Sinusitis, Sinusitis Discharge ED Provider: Keshia Soares [facility] General Stated complaint: cough and soa Mode of Arrival: Ambulatory Source of Information: Patient Limitations: No Limitations Time Seen by Provider: 07/16/23 15:56 Description of Symptoms (Recalled from Triage Doc. by RN): PATIENT C/O COUGH AND SORE THROAT SINCE THIS MORNING HEENT Symptoms (Recalled from RN notes): Yes Resp Symptoms (Recalled from RN notes): Yes Skin Symptoms (Recalled from RN notes): No MS Symptoms (Recalled from RN notes): No Functional Status (Recalled from RN notes): WNL History of Present Illness Provider Complaint: Patient states that she has been having sinus congestion and pressure for over a week States that today she has been having scratchy throat and feeling a little SOA at times with cough but not coughing anything up so she came in Related Data Previous Rx's Medication Instructions Recorded amoxicillin 875 mg-potassium 1 tab PO Q12H #20 tabs 07/16/23 clavulanate 125 mg tablet guaifenesin 600 mg tablet, 1,200 mg PO BID PRN cough #20 tabs 07/16/23 extended release 12 hr (Mucinex) Allergies Allergy/AdvReac Type Severity Reaction Status Date / Time propoxyphene Allergy Intermediate Rash,Itchin Verified 07/04/23 15:53 g tramadol Allergy Intermediate Hives Verified 07/04/23 15:53 iopamidol [From Isovue-128] Allergy Difficulty Verified 07/04/23 15:53 Breathing acetaminophen [From Percocet] AdvReac Mild Itching Verified 07/04/23 15:53 oxycodone [From Percocet] AdvReac Mild Itching Verified 07/04/23 15:53 prednisone AdvReac Gastrointestinal Verified 07/04/23 15:53 Upset Worker's Comp Is this a Worker's Comp case?: No [facility] Disclaimer: The information contained in this section may have been updated after the patient was seen, as this information can be updated by other users. Medical History Allergies Anxiety Asthma Bronchitis Depression Family history of Duchenne muscle dystrophy 2 brothers Gallbladder disease History of anemia History of ectopic History of gastroesophageal reflux (GERD) Hypertension Migraine Surgical History H/O LEEP History of cholecystectomy History of eye surgery History of salpingectomy S/P endometrial ablation Family History Other No significant family history Social History Smoking Status: Current every day smoker tobacco type: cigarettes packs per day: 1 years smoked: 20 quit status: not considering quitting alcohol intake: never substance use type: denies use current occupational status: employed Travel in the last 8 weeks: None household members: spouse and family housing: house current occupational exposures/hazards: No caffeine: Yes do you feel safe at home: No victim of physical abuse: No victim of emotional abuse: No victim of sexual abuse: No would you like helpful sources: No ROS Obtained: Yes All systems reviewed & no additional complaints except as documented and Yes Systems reviewed as appropriate & no additional complaints except as documented Constitutional Constitutional: Reports system reviewed and no additional complaints, except as documented and Reports as per HPI ENT Ears, Nose, Mouth, and Throat: Reports system reviewed and no additional complaints, except as documented, Reports as per HPI, Reports sinus pain, Reports sinus pressure and Reports sore throat Cardiovascular Cardiovascular: Reports system reviewed and no additional complaints, except as documented and Reports as per HPI Respiratory Respiratory: Reports system reviewed and no additional complaints, except as documented, Reports as per HPI, Reports shortness of breath (at times after coughing) and Reports cough Gastrointestinal Gastrointestingal: Reports system reviewed and no additional complaints, except as documented and as per HPI Physical Exam General General appearance: alert and in no apparent distress ENT ENT exam: Present mucous membranes moist Expanded ENT Exam Nose exam: Present sinus tenderness Throat exam: Present other (PND noted) Respiratory Respiratory exam: Present normal lung sounds bilaterally; Absent respiratory distress or wheezes Cardiovascular Cardiovascular exam: Present regular rate, normal rhythm and normal heart sounds Abdominal Exam Abdominal exam: Present soft and normal bowel sounds; Absent distention or tenderness Neurological Exam Neurological exam: Present alert, oriented X3 and normal gait Medical Decision Making Tyler Inquiry Pt receiving controlled substance: No Tyler was queried for this patient: No Vital Signs: 07/16/23 15:20 Temperature 98.5 F Temperature Source Oral Pulse Rate [Left Brachial] 76 Respiratory Rate 20 Blood Pressure [Left Arm] 150/70 H Blood Pressure Mean [Left Arm] 96 Blood Pressure Source [Left Arm] Automatic Cuff Blood Pressure Position [Left Arm] Sitting 02 Sat by Pulse Oximetry 98 Oxygen Delivery Method Room Air Lab Data Lab results reviewed: Yes I reviewed the patient's lab results.
[2023-07-16 16:07] VITALS: BP 150/70; PULSE 76; RESP 20; TEMP 36.9; O2SAT 98
== END 2023-07-16 16:18 | disposition home or self-care (01) ==
PROVIDERS: Emergency Provider Nurse Practitioner; PCP Internal Medicine Adolescent Medicine
DX: J32.9 Chronic sinusitis, unspecified (principal); R05.9 Cough, unspecified; R09.81 Nasal congestion; J02.9 Acute pharyngitis, unspecified; R06.02 Shortness of breath; F41.9 Anxiety disorder, unspecified; J45.909 Unspecified asthma, uncomplicated; F32.A Depression, unspecified; I10 Essential (primary) hypertension; F17.210 Nicotine dependence, cigarettes, uncomplicated
CPT/HCPCS: 99204; 99212; G0463

== ENCOUNTER 2023-08-25 10:28 | Outpatient (CLI) | payer BC, SELFPAY ==
--- NOTE | 2023-08-25 | XR_ITS ---
PROCEDURE INFORMATION: Exam: XR Cervical Spine Exam date and time: 08/25/2023 10:48 AM Age: 37 years old Clinical indication: Sciatica; Left; Additional info: Acute lt sciatica TECHNIQUE: Imaging protocol: Radiologic exam of the cervical spine. Views: 4 or 5 views. COMPARISON: CR XR CHEST 2V 06/09/2019 12:55 AM FINDINGS: Bones/joints: There is no evidence of acute fracture.There is no evidence of malalignment or dislocation. Soft tissues: Unremarkable. IMPRESSION: There is no evidence of acute fracture.There is no evidence of malalignment or dislocation. PROCEDURE INFORMATION: Exam: XR Lumbosacral Spine Exam date and time: 08/25/2023 10:48 AM Age: 37 years old Clinical indication: Sciatica; Left; Additional info: Acute lt sciatica TECHNIQUE: Imaging protocol: Radiologic exam of the lumbosacral spine. Views: 4 or 5 views. COMPARISON: US TRANSVAGINAL 02/16/2021 1:37 AM FINDINGS: Bones/joints: There is no evidence of acute fracture.There is no evidence of malalignment or dislocation. Soft tissues: Unremarkable.
[2023-08-25 11:02] LABS: Basophils % 0.1 % (0.1-2.0); Eosinophils # 0.1 K/mm3 (0.0-0.4); Eosinophils % 0.4 % (0.1-12.0); Lymphocytes # 3.2 K/mm3 (0.7-4.5); Lymphocytes % 21.3 % (10-50); Mean Corpuscular HGB Conc 31.9 g/dL (31.8-35.4); Mean Corpuscular Volume 84.8 fl (81-99); Mean Platelet Volume 9.3 fl (7.4-10.4); Monocytes # 0.6 K/mm3 (0.1-1.0); Monocytes % 4.2 % (1.7-9.3); Neutrophils # 11.2 K/mm3 (1.8-7.8); Platelet Count 330 K/mm3 (142-424); Red Blood Count 5.19 M/mm3 (4.20-5.40); Red Cell Distribution Width 15.7 % (11.5-17.5); White Blood Count 15.1 K/mm3 (4.8-10.8)
[2023-08-25 11:10] LABS: MANUAL DIFFERENTIAL MANUAL DIFFERENTIAL (MANUAL DIFF)
[2023-08-25 11:31] LABS: Alanine Aminotransferase 25 U/L (12-78); Albumin Level 4.4 g/dl (3.5-5.0); Albumin/Globulin Ratio 1.8 (1.1-1.8); Alkaline Phosphatase 97 U/L (38-126); Anion Gap 11.5 mEq/L (5-15); Aspartate Amino Transferase 26 U/L (14-36); Bilirubin,Total 0.4 mg/dl (0.2-1.3); Blood Urea Nitrogen 8 mg/dl (7-17); Calcium 9.9 mg/dl (8.4-10.2); Carbon Dioxide 26 mmol/L (22.0-30.0); Chloride 108 mmol/L (98-107); Chol/HDL Ratio 5.8 (1-3.5); Cholesterol 180 mg/dl (140-200); Estimated Glomerular Filt Rate 95 ml/min (>60); GFR (African American) 115 ML/MIN (>60); Globulin 2.4 g/dL (1.3-3.2); Glucose 95 mg/dl (74-100); HDL Cholesterol 31 mg/dl (40-60); Magnesium 2.2 mg/dl (1.6-2.3); Potassium 4.5 mmoL/L (3.5-5.1); Sodium 141 mmol/L (136-145); Total Protein,Serum 6.8 g/dl (6.3-8.2); Triglycerides 93 mg/dl (30-150); VLDL Cholesterol 19 mg/dL (0-40)
[2023-08-25 11:42] LABS: Direct LDL Cholesterol 120.66 mg/dL (100-129)
[2023-08-25 11:48] LABS: Free T4 (Free Thyroxine) 1.06 ng/dl (0.78-2.19)
[2023-08-25 11:51] LABS: 25-OH Vitamin D, Total 36.3 ng/mL (30-100)
[2023-08-25 12:02] LABS: Thyroid Stimulating Hormone 0.57 uIU/mL (0.465-4.68)
[2023-08-25 12:20] LABS: Vitamin B12 979 pg/mL (239-931)
[2023-08-25 14:24] LABS: Lymphocytes % 33 % (10-50); Monocytes % 1 % (2-9); Neutrophils % 66 % (42-76); Platelet Estimate Normal; RBC Morphology Normal; Total Cells Counted 100
== END 2023-08-25 23:59 ==
PROVIDERS: PCP Internal Medicine Adolescent Medicine; Visit Provider Physician Assistant
DX: M54.42 Lumbago with sciatica, left side (principal); R20.0 Anesthesia of skin; E66.9 Obesity, unspecified; Z68.41 Body mass index [BMI] 40.0-44.9, adult; Z83.438 Family history of other disorder of lipoprotein metabolism and other lipidemia
CPT/HCPCS: 36415; 72084; 80053; 80061; 82306; 82607; 83735; 84439; 84443; 85007; 85025

== ENCOUNTER 2023-08-30 08:12 | Outpatient (CLI) | payer BC, SELFPAY ==
--- NOTE | 2023-08-30 08:16 | XR_ITS ---
FINAL REPORT CLINICAL HISTORY: LEFT SIDE LOW BACK PAIN WITH SCIATICA FINDINGS: AP and frog leg views of the left hip were obtained. There is no prior exam for comparison. There is no acute fracture or dislocation. Joint space is preserved. Soft tissues are within normal limits. IMPRESSION: No acute osseous abnormality of the left hip. If pain persists, MR is recommended. Reviewed, Interpreted and Dictated by Lisa Justin MD Transcribed by Estefany Villegas Authenticated and [facility]
== END 2023-08-30 23:59 ==
LOC: RAD 08:13
PROVIDERS: PCP Physician Assistant; Visit Provider Physician Assistant
DX: M54.42 Lumbago with sciatica, left side (principal)
CPT/HCPCS: 73502

== ENCOUNTER 2023-09-17 08:20 | Outpatient (CLI) | payer BC, SELFPAY | END 2023-09-17 23:59 | LOC: RAD 08:20 | PROVIDERS: PCP Internal Medicine Adolescent Medicine; Visit Provider Physician Assistant | DX: M54.42 Lumbago with sciatica, left side (principal) ==

== ENCOUNTER 2023-10-11 14:21 | Outpatient (CLI) | payer BC, SELFPAY | END 2023-10-11 23:59 | disposition home or self-care (01) | LOC: UTC.OUT 14:22 | PROVIDERS: PCP Internal Medicine Adolescent Medicine; Visit Provider Nurse Practitioner Family | DX: Z11.1 Encounter for screening for respiratory tuberculosis (principal) | CPT/HCPCS: 86580 ==

== ENCOUNTER 2023-11-02 11:23 | Outpatient (CLI) | payer BC, SELFPAY | END 2023-11-02 23:59 | disposition home or self-care (01) | LOC: UTC.OUT 11:24 | PROVIDERS: PCP Internal Medicine Adolescent Medicine; Visit Provider Nurse Practitioner | DX: Z11.1 Encounter for screening for respiratory tuberculosis (principal) | CPT/HCPCS: 86580 ==

== ENCOUNTER 2024-02-14 16:01 | Outpatient (CLI) | payer BC, SELFPAY | END 2024-02-14 23:59 | disposition home or self-care (01) | LOC: RAD 16:01 | PROVIDERS: PCP Nurse Practitioner Family; Visit Provider Nurse Practitioner Family | DX: M48.00 Spinal stenosis, site unspecified (principal) ==

== ENCOUNTER 2024-05-21 17:09 | Emergency (ER) | payer BC, SELFPAY ==
[2024-05-21 18:10] VITALS: BP 124/58; PULSE 67; RESP 20; TEMP 37; O2SAT 99; BMI 40.4
--- NOTE | 2024-05-21 18:27 | ED_ITS ---
Discharge Plan Disposition Patient Disposition: Home, Self-Care Condition: Good Prescriptions Prescriptions: New cyclobenzaprine 10 mg Tablet 10 mg PO BID PRN (Reason: Muscle Spasm) Qty: 20 0RF ibuprofen [IBU] 800 mg tablet 800 mg PO Q8HP PRN (Reason: Moderate Pain) Qty: 30 0RF Referrals Follow up/Referrals: Jay Paniagua DO [Staff Physician] - See instructions Barney Carnes MD [Primary Care Provider] - See instructions Activity Restrictions/Add. Instructions Additional Instructions/Restrictions: Go home and rest. It would be best if you rested tomorrow too. No heavy lifting & No twisting for the next few days. Take the oral medications as directed. The muscle relaxer (cyclobenzaprine--Flexeril) will make you drowsy, so don't drive or operate heavy machinery after taking it. Don't take ibuprofen for at least 6 hours after you had the shots here today. Follow up with your regular doctor. Follow up with Dr. Paniagua (orthopedics). I put in a referral but you need to call his office and schedule an appointment. His office phone number will be on this paper work. GO TO THE ER FOR ANY WORSENING SYMPTOMS OR CONCERN, ESPECIALLY BOWEL OR BLADDER ISSUES, SADDLE AREA NUMBNESS, FEVER, ETC Clinical Impressions Clinical Impression: Upper back pain on right side, Tendinopathy of right shoulder Instructions Patient Instructions: Shoulder Tendinopathy, DI for Shoulder Tendinopathy, Ibuprofen, Ketorolac Injection, Dexamethasone Injection Print Language Print Language: Moroccan Discharge ED Provider: Kj Morales [facility] General Stated complaint: right upper back pain Mode of Arrival: Ambulatory Source of Information: Patient Limitations: No Limitations Time Seen by Provider: 05/21/24 18:27 Description of Symptoms (Recalled from Triage Doc. by RN): PATIENT C/O PAIN TO RIGHT UPPER BACK THAT STARTED YESTERDAY. NO KNOWN INJURY HEENT Symptoms (Recalled from RN notes): No Resp Symptoms (Recalled from RN notes): No Skin Symptoms (Recalled from RN notes): No MS Symptoms (Recalled from RN notes): Yes Functional Status (Recalled from RN notes): WNL Related Data Previous Rx's ?Medication ?Instructions ?Recorded cyclobenzaprine 10 mg tablet 10 mg PO BID PRN Muscle Spasm #20 05/21/24 tabs ibuprofen 800 mg tablet (IBU) 800 mg PO Q8HP PRN Moderate Pain 05/21/24 #30 tabs Allergies Allergy/AdvReac Type Severity Reaction Status Date / Time propoxyphene Allergy Intermediate Rash,Itchin Verified 07/04/23 15:53 g tramadol Allergy Intermediate Hives Verified 07/04/23 15:53 iopamidol (From Isovue-128) Allergy Difficulty Verified 07/04/23 15:53 Breathing acetaminophen (From Percocet) AdvReac Mild Itching Verified 07/04/23 15:53 oxycodone (From Percocet) AdvReac Mild Itching Verified 07/04/23 15:53 prednisone AdvReac Gastrointestinal Verified 07/04/23 15:53 Upset Worker's Comp Is this a Worker's Comp case?: No [facility] Disclaimer: The information contained in this section may have been updated after the patient was seen, as this information can be updated by other users. Medical History Allergies Anxiety Asthma Bronchitis Depression Family history of Duchenne muscle dystrophy 2 brothers Gallbladder disease History of anemia History of ectopic History of gastroesophageal reflux (GERD) Hypertension Migraine Surgical History H/O LEEP History of cholecystectomy History of eye surgery History of salpingectomy S/P endometrial ablation Family History Other No significant family history Social History Smoking Status: Current every day smoker tobacco type: cigarettes packs per day: 1 years smoked: 20 quit status: not considering quitting alcohol intake: never substance use type: denies use current occupational status: employed Travel in the last 8 weeks: None household members: spouse and family housing: house current occupational exposures/hazards: No caffeine: Yes do you feel safe at home: No victim of physical abuse: No victim of emotional abuse: No victim of sexual abuse: No would you like helpful sources: No ROS Obtained: Yes All systems reviewed & no additional complaints except as documented Constitutional Constitutional: Denies chills and Denies fever(s) Eyes Eyes: Denies eye discharge ENT Ears, Nose, Mouth, and Throat: Denies dizziness, Denies otalgia and Denies sore throat Cardiovascular Cardiovascular: Denies chest pain Respiratory Respiratory: Denies shortness of breath, Denies chest congestion, Denies cough, Denies stridor and Denies wheezing Gastrointestinal Gastrointestingal: Denies nausea or vomiting Musculoskeletal Musculoskeletal: Reports system reviewed and no additional complaints, except as documented and Denies arthralgias Integumentary/Breasts Skin/Breast: Denies rash Neurologic Neurologic: Denies dizziness and Denies paresthesias Allergic/Immunologic Allergic/Immunologic: Denies wheezing Physical Exam General General appearance: alert and in no apparent distress Head Head exam: atraumatic, normocephalic and normal inspection Eye Eye exam: Present normal appearance, PERRL and EOMI ENT ENT exam: Present normal exam, normal oropharynx, mucous membranes moist, TM's normal bilaterally and normal external ear exam Neck Neck exam: Present normal inspection, full ROM and trachea midline; Absent meningismus or lymphadenopathy Chest Chest inspection: Present normal inspection and symmetric chest wall rise; Absent tenderness Respiratory Respiratory exam: Present normal lung sounds bilaterally; Absent respiratory distress Cardiovascular Cardiovascular exam: Present regular rate and normal rhythm; Absent JVD Abdominal Exam Abdominal exam: Present soft and normal bowel sounds; Absent distention, tenderness or guarding Extremities Exam Extremities exam: Present normal inspection, full ROM and normal capillary refill; Absent calf tenderness Back Exam Back exam: Present normal inspection; Absent tenderness Neurological Exam Neurological exam: Present alert and oriented X3 Psychiatric Psychiatric exam: Present normal affect and normal mood Skin Skin exam: Present warm, dry, intact and normal color Lymphatic Lymphatic Findings: no adenopathy Medical Decision Making Medical Records Medical records reviewed: No I reviewed the patient's medical records. Screening: Per USPSTF and CDC recommendations, given the prevalence of disease in our region, it is our hospital?s policy to screen for HIV and viral Hepatitis for all patients aged 18 and over and those with ongoing risk factors. Tyler Inquiry Pt receiving controlled substance: No Vital Signs: 05/21/24 18:10 Temperature 98.6 F Temperature Source Oral Pulse Rate [Left Brachial] 67 Respiratory Rate 20 Blood Pressure [Left Arm] 124/58 L Blood Pressure Mean [Left Arm] 80 Blood Pressure Source [Left Arm] Automatic Cuff Blood Pressure Position [Left Arm] Sitting 02 Sat by Pulse Oximetry 99 Oxygen Delivery Method Room Air
[2024-05-21] MEDS: DEXAMETHASONE 4MG/ML 1ML VIAL 8 MG IM (19:03)
[2024-05-21] MEDS: KETOROLAC 60MG/2ML VIAL 60 MG IM (19:03)
[2024-05-21 19:24] VITALS: BP 124/58; PULSE 67; RESP 20; TEMP 37; O2SAT 99
== END 2024-05-21 19:29 | disposition home or self-care (01) ==
PROVIDERS: Emergency Provider Nurse Practitioner Family; PCP Internal Medicine Adolescent Medicine
DX: M54.6 Pain in thoracic spine (principal); M67.813 Other specified disorders of tendon, right shoulder
CPT/HCPCS: 96372; 99213; G0381; J1100; J1885

== ENCOUNTER 2024-07-17 16:21 | Outpatient (CLI) | payer BC, SELFPAY | END 2024-07-17 23:59 | disposition home or self-care (01) | LOC: LAB 16:24 | PROVIDERS: PCP Internal Medicine Adolescent Medicine; Visit Provider Nurse Practitioner Family | DX: Z11.1 Encounter for screening for respiratory tuberculosis (principal) | CPT/HCPCS: 36415; 86480 ==

== ENCOUNTER 2025-05-05 15:59 | Outpatient (CLI) | payer BC, SELFPAY ==
--- OUTSIDE RECORDS SUMMARY | 2025-05-05 16:01 | XMS_ITS | Clinical Summary ---
Author Organization [facility] Address [address] [place] [address] Care Team Providers Care Vamp Marker Name Role Phone Kj Pack MD Primary Care Provider [phone] Allergies Active Allergy Reactions Criticality Noted Date Comments Iv Contrast Unknown - Patient st ates they do not know rxn details Low 03/10/2020 Other Unknown - Patient st ates they do not know rxn details,Hives Medium 12/23/2019 Oxycodone Unknown - Patient st ates they do not know rxn details Low 03/10/2020 Oxycodone-Acetaminophen Unknown - Patien t states they do not know rxn details Low 03/10/2020 Prednisone Unknown - Patient [facility] ates they do not know rxn details Low 03/10/2020 Tramadol Unknown - Patient [facility] ates they do not know rxn details Low 03/10/2020 Medications albuterol 108 (90 Base) MCG/ACT inhaler INHALE 2 puffs BY MOUTH FOUR TIMES DAILY NEEDED 9 Active BUTALBITAL-APAP -CAFFEINE PO 0 Active fluticasone-samreen anterol (Breo Ellipta) 100-25 MCG/INH inhaler INHALE 1 PUFF BY MOUTH EVERY DAY RINSE MOUTH AFTER EACH USE 0 Active fluticasone (Flonase) 50 MCG/ACT nasal spray 0 Active HYDROcodone-amxwell taminophen ([place]) 5-325 MG tablet 0 Active ibuprofen 800 MG tablet TAKE ONE TABLET BY MOUTH THREE TIMES DAILY NEEDED TAKE WITH FOOD- 0 Active loratadine (Claritin) 10 MG tablet TAKE 1 TABLET BY MOUTH EVERY DAY 0 Active phentermine (Adipex-P) 37.5 MG tablet 0 Active topiramate 50 MG tablet TAKE 1 TABLET BY MOUTH TWICE DAILY 0 Active venlafaxine XR (Effoxor-XR) 150 MG 24 hr capsule TAKE ONE CAPSULE BY MOUTH EVERY DAY 0 Active UNABLE TO FIND 0 Active UNABLE TO FIND 0 Active albuterol 108 (90 Base) MCG/ACT inhaler INHALE 2 puffs BY MOUTH FOUR TIMES DAILY NEEDED 9 Active BUTALBITAL-APAP -CAFFEINE PO 0 Active fluticasone-samreen anterol (Breo Ellipta) 100-25 MCG/INH inhaler INHALE 1 PUFF BY MOUTH EVERY DAY RINSE MOUTH AFTER EACH USE 0 Active ocular lubricant preserved (Artifical Tears) 1-0.3 % solution ophthalmic solution Administer 1 drop into the left eye if needed. 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 Family History Medical History Relation Name Comments Conversions - Other Father FH: diana mccall Diabetes Maternal Grandmother Heart failure Maternal Grandmother Hypertension Maternal Grandmother Conversions - Other Mother FH: diana racts Diabetes Paternal Grandmother Hypertension Paternal Grandmother Relation Name Status Comments Father Maternal Grandmother Mother Paternal Grandmother Social History Tobacco Use Types Packs/Day Years Used Date Smoking Tobacco: Every Day Alcohol Use Standard Drinks/Week Comments Yes 0 (1 standard drink = 0.6 oz pure alcohol) Alcoholic Drinks/day: Occasional alcohol use Comments Unknown Sex and Gender Information Value Date Recorded Sex Assigned at Not on file Legal Sex Female 7:56 PM EDT Gender Identity Not on file Sexual Orientation Not on file Plan of Treatment Health Maintenance Due Date Last Done Comments [facility]-Depression Screening 1986 [facility]-/Child/Adol SDOH Screenings 1986 [facility]-Varicella Vaccines (1 of 2 - 13+ 2-dose series) 11/25/1999 [facility]- SDOH Screenings 2004 [facility]-Adult SDOH Screenings 2004 [facility]-DTaP,Tdap,and Td Vaccines (1 - Tdap) 2005 [facility]-Hepatitis B Vaccines (1 of 3 - 19+ 3-dose series) 2005 [facility]-Pap Smear 11/25/2007 HPV Vaccines (1 - 3-dose SCDM series) 2013 [facility]-Cervical Cancer Screening 2016 [facility]-HPV/Cotest 2016 [facility]-HVMQT-15 Vaccine (3 - 2024- season) 2025 10/13/2020, 09/15/2020 [facility]-Influenza Vaccine (#1) 2025 [facility]-Zoster Vaccines (1 of 2) 2036 [facility]-Hepatitis A Vaccines Aged Out 05/13/2018 No longer eligible based on patient's age to complete this topic [facility]-HIB Vaccines Aged Out No longer e ligible based on patient's age to complete this topic [facility]-IPV Vaccines Aged Out No longer e ligible based on patient's age to complete this topic [facility]-Pneumococcal Vaccine: Pediatrics (0 to 5 Years) and At-Risk Patients (6 to 49 Years) Aged Out No longer eligible b ased on patient's age to complete this topic [facility]-Rotavirus Vaccines Aged Out No lo nger eligible based on patient's age to complete this topic Insurance [employer] Care Teams Vamp Marker Relationship Specialty Start Date End Date Kj Pack MD [address] [place] [address] PCP - General 11/12/20
[2025-05-05 17:39] LABS: Hepatitis C Ab Qual. W/ RFX NEGATIVE (Negative)
[2025-05-06 10:12] LABS: Hepatitis B Surface Antigen Negative (Negative)
== END 2025-05-05 23:59 | disposition home or self-care (01) ==
LOC: LAB 16:00
PROVIDERS: PCP Internal Medicine Adolescent Medicine; Visit Provider Nurse Practitioner Obstetrics & Gynecology
DX: Z11.3 Encounter for screening for infections with a predominantly sexual mode of transmission (principal)
CPT/HCPCS: 36415; 86803; 87340; 87389